=== PATIENT | female | born 1945 | race African-American/Black ===

== ENCOUNTER 2017-07-26 17:44 | Inpatient (IN) | payer MEDICARE, OTHER ==
--- NOTE | 2017-07-26 18:41 | RAD ---
RIGHT TIBIA AND FIBULA TWO VIEW 07/26/17 HISTORY: Injury. COMPARISON: None. FINDINGS: There is soft tissue phleboliths. No acute fracture or malalignment of the tib/fib. IMPRESSION: Chronic soft tissue changes. POS: [facility]
--- NOTE | 2017-07-26 18:45 | RAD ---
RIGHT FOOT THREE VIEW 07/26/17 HISTORY: Injury. COMPARISON: Foot radiograph 03/13/17. FINDINGS: There is erosion of the tuft of the distal phalanx of the second toe which appears relatively similar . Severe degenerative disease throughout the midfoot. Evidence of old fractures of the third and four th proximal phalanges. Severe degenerative disease of the midfoot with cystic change of the third, fourth and fifth metatars al base as well as the lateral cuneiform and in the navicular. IMPRESSION: 1. Chronic changes without acute fracture. 2. Erosion of the distal phalanx of the second toe suggests osteomyelitis. Correlation is recomm ended for evaluation of acuity. POS: [facility]
[2017-07-26] MEDS ORDERED: Acetaminophen 325 MG TAB ONE (19:37)
[2017-07-26 20:43] LABS: #Eosinphils 0.1 thou/uL (0.0-0.7); #Lymphocytes 2.1 thou/uL (1.20-3.40); #Neutrophils 7.6 thou/uL (1.40-6.50); %Basophils 0.1 % (0.0-1.0); %Lymphocytes 19.3 % (21.0-51.0); %Monocytes 9.2 % (0.0-10.0); Hematocrit 31.9 % (36.0-47.0); Mean Platelet Volume 9.3 fL (7.4-10.4); Red Blood Cell (RBC) Count 4.02 mill/uL (4.20-5.40); White Blood Cell (WBC) Count 10.7 thou/uL (4.8-10.8)
[2017-07-26] MEDS ORDERED: Piperacillin/Tazobactam 3.375 GM in Sodium Chloride 0.9% 100 ML IVPB ONE (20:45)
[2017-07-26 21:02] LABS: Anion Gap 14 mmol/L (10-20); BUN (Urea Nitrogen) 20 mg/dL (9.8-20.1); Calc. Creatinine Clearance 0 mL/min (70-130); Calcium 9.6 mg/dL (7.8-10.44); Carbon Dioxide 25 mmol/L (23-31); Chloride 105 mmol/L (98-107); Estimated GFR-MDRD 49
--- NOTE | 2017-07-26 22:41 | CT ---
CT OF THE BRAIN WITHOUT CONTRAST 07/26/17 HISTORY: Fall on anticoagulants. COMPARISON: CT brain 02/13/15. FINDINGS: No acute territorial infarct or hemorrhage. No midline shift or mass effect. Ventricular size and ext ra-axial CSF spaces are within normal limits. Small radial opacity along the periorbital soft tissues on the right, similar. The paranasal sinuses and mastoids are clear. Calvarium is intact. IMPRESSION: No acute intracranial abnormality. POS: [facility]
[2017-07-26] MEDS ORDERED: Ondansetron ODT 4 MG TAB SL PRN (23:07)
[2017-07-26] MEDS ORDERED: Ondansetron HCl/PF 4 MG/2 ML Vial IVP PRN (23:07)
[2017-07-26 23:22] VITALS: BMI 31.8
[2017-07-26] MEDS: Sodium Chloride 0.9% 1,000 ML IV SCH (23:31)
[2017-07-27] MEDS: Sodium Chloride 0.9% 1,000 ML IV SCH ×4 (05:50→17:08)
[2017-07-27 09:49] LABS: Prothrombin Time 40.2 SEC (12.0-14.7)
[2017-07-27 09:50] LABS: PTT 89.1 SEC (22.9-36.1)
[2017-07-27] MEDS ORDERED: hydrALAZINE 25 MG TAB PO SCH (10:00)
[2017-07-27] MEDS ORDERED: Digoxin 0.125 MG TAB PO SCH (10:00)
[2017-07-27] MEDS ORDERED: Lisinopril 20 MG TAB PO SCH (10:00)
[2017-07-27] MEDS ORDERED: Aspirin 81 mg Enteric Coated Tablet PO SCH (10:00)
[2017-07-27] MEDS ORDERED: metFORMIN XR 500 MG TAB PO SCH (10:00)
[2017-07-27] MEDS ORDERED: Sotalol HCl 80 MG TAB PO SCH (10:00)
[2017-07-27] MEDS ORDERED: Insulin Detemir 100 UNITS/ML 35 UNITS in Pre-Filled Syringe 1 EACH SC SCH (10:45)
[2017-07-27] MEDS: Piperacillin/Tazobactam 3.375 GM in Sodium Chloride 0.9% 100 ML IVPB SCH ×3 (11:27→21:14)
[2017-07-27 15:15] LABS: Bilirubin Negative (Negative); Glucose, Urine (Dipstick) Negative (Negative); Ketone, Urine Negative (Negative); Nitrite Negative (Negative); Protein, Urine (Dipstick) 30 mg/dL (Neg-Trace)
[2017-07-27] MEDS ORDERED: Ketorolac Tromethamine 30 MG/ML VIAL IVP SCH (15:15)
[2017-07-27] MEDS ORDERED: predniSONE 20 MG TAB PO SCH (15:15)
[2017-07-27 15:17] LABS: Bacteria/HPF None Seen HPF (None Seen); Hyaline Casts/LPF 0-3 HYALINE CAST LPF (0-3 Hyaline); Squamous Epithelial 0-3 HPF (0-3); WBC/HPF 0-3 HPF (0-3)
[2017-07-27 15:25] LABS: Blood, Urine Small (Negative)
--- NOTE | 2017-07-27 15:46 | RAD ---
CHEST 2 VIEWS: Date: 07/27/17 HISTORY: Chest pain. FINDINGS: Comparison with 03/13/07 study. Heart size is enlarged with internal defibrillator device present. The lungs are clear of infiltrativ e process. IMPRESSION: Mild cardiomegaly. POS: [facility]
--- NOTE | 2017-07-27 15:55 | CON ---
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 HISTORY: Ms. Araujo is a 71-year-old woman who has had pain and swelling in her right leg and foot since being tripped by her dog. She states that she owns a bulldog and it ran around her legs with its chain and then swept her feet out from underneath her. She states that her foot and leg had hurt since that time and been swollen and tender. She denies any fevers or chills at home, but states th at she did have a low grade fever in the emergency room. She denies any breaks in the skin or any dr ainage. She states that her right toe has been black in color, since her last admission when they we re putting a black medication on the toe. She denies any pain or swelling in her toes, but states th at the top of her foot hurts as well as her lateral calf. She did undergo imaging in the ER, A brain CT was negative for intracranial hemorrhage, foot x-ray did not show any acute fractures, but did sh ow irregularity of the distal tuft of the right second toe. A tibia/fibula x-ray did not show any fra ctures. The patient has chronic atrial fibrillation and is on anticoagulation for this. Her INR on admission was 3.9. PAST MEDICAL HISTORY: Hypertension, hyperlipidemia, gout, diabetes, chronic atrial fibrillation on a nticoagulation, COPD, coronary artery disease. PAST SURGICAL HISTORY: Ablation and AICD placement, knee replacement on the right. OUTPATIENT MEDICATIONS: Include aspirin, vitamin D, digoxin, diltiazem, hydralazine, glargine insuli n, lisinopril, metformin, metoprolol, simvastatin, sotalol and Coumadin. ALLERGIES: She has no known drug allergies. INPATIENT MEDICATIONS: Include aspirin, atorvastatin, vitamin D3, digoxin, diltiazem p.r.n., hydrala zine, sliding scale insulin, lisinopril, metformin, metoprolol, Zosyn and sotalol. REVIEW OF SYSTEMS: Ten-system review of systems is negative except per HPI. PHYSICAL EXAMINATION: VITAL SIGNS: T-max 100.5, T current 100.0, respirations 16, 97% saturated on room air, heart rate is 88, and blood pressure 166/72. HEENT: Unremarkable. NECK: Supple, without lymphadenopathy or thyroid nodules. HEART: Regular in its rate and rhythm without murmurs, rubs or gallops. LUNGS: Clear to auscultation bilaterally. ABDOMEN: Soft, nontender, nondistended. EXTREMITIES: Warm and well perfused. She has normal dorsalis pedis pulses bilaterally. Her right f oot is slightly swollen especially on the dorsum, it is tender to palpation, but there is no crepitan ce and no fluctuance. The right second toe has a black hyperkeratotic tip consistent with dry gangre ne, but the toe itself is not swollen or tender. There is no drainage or erythema. There is no temp erature differential between the right and the left foot by palpation. She does not have widened pop liteal or aortic pulse that I can appreciate on exam. NEUROLOGIC: No focal deficits. PSYCHIATRIC: Alert, oriented, and appropriate. 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 There i s no evidence of wet gangrene or infectious complications, so I have recommended just painting this w ith Betadine once or twice a day and observing it and allowing it to auto-amputate. It is not entirel y clear why she has necrotic toe tip. She may have thrown a small embolism from her atrial fibrillat ion or she may have debris in the arteries upstream. I do think it is worthwhile to check an ultraso und of her popliteal, femoral and aortic vessels as this has not already been done to look for aneury sms and I doubt that she has any significant stenosis and she has easily palpable pulses in her feet. Vascular surgery consultation on a non-urgent basis could also be considered given her dry gangrene ; however, I feel it is likely microvascular or small embolism given her normal pulses. I have recom mended that the patient elevate her leg and place some ice on the swollen areas. There is no milton e rythema or fluctuance, but if she continues to have low grade fevers, I would recommend that a CT be obtained of her foot and calf to rule out occult abscess. However, I feel that the musculoskeletal i njury is more likely in this situation; hence, evaluation for another source of infection might be pr udent. It does not appear that a urinalysis or urine culture was done on her admission, so that can be considered as a possibility as well. Dry gangrene of the right second toe which does not require surgical intervention at this time. She does have pain and swelling of her right foot as well as ten derness of her right calf without obvious clinical swelling. This is likely musculoskeletal, but inf ectious cause cannot be completely eliminated.
[2017-07-27] MEDS: metFORMIN XR 500 MG TAB PO SCH (17:07)
[2017-07-27] MEDS: Sotalol HCl 80 MG TAB PO SCH (20:01)
[2017-07-27] MEDS: hydrALAZINE 25 MG TAB PO SCH (20:02)
[2017-07-27] MEDS: Atorvastatin Calcium 10 MG TAB PO SCH (20:03)
[2017-07-27] MEDS ORDERED: Ketorolac Tromethamine 30 MG/ML VIAL IVP PRN (21:00)
--- NOTE | 2017-07-27 23:32 | HP ---
DATE OF ADMISSION: 07/26/2017 REASON/CHIEF COMPLAINT: Left ankle and left foot pain. HISTORY OF PRESENT ILLNESS: Ms. Araujo is a 71-year-old -Tog[place] female with past medical history of chronic atrial fibrillation, diabetes, hypertension, chronic second toe wound, who came be cause of left foot swelling and pain in the ankle that got worse in the last few days. The patient s tates she also fell yesterday. The patient's pain was getting worse. She decided to come to the [facility] and seemed to have fever at home. No nausea or vomiting, no headache, no chest pain, no shortn ess of breath. In the ER, the patient was evaluated. The patient was found to have left second toe dry gangrene, suspected to have osteomyelitis according to the x-ray, so, she was given Zosyn and van comycin and admitted for further evaluation and management. PAST MEDICAL HISTORY: 1. Diabetes mellitus. 2. Hypertension. 3. Hyperlipidemia. 4. Chronic obstructive pulmonary disease. 5. Chronic kidney failure. 6. Atrial fibrillation. 7. Coronary artery disease. 8. History of chronic gout. PAST SURGICAL HISTORY: Status post ablation of atrial flutter, status post AICD placement. CURRENT MEDICATIONS: The patient is on atorvastatin 10 mg daily, vitamin D daily, digoxin 0.125 mg d aily, diltiazem 240 daily, hydralazine 25 b.i.d., Levemir insulin 35 units daily, lisinopril 40 mg da butch, metformin 500 b.i.d., metoprolol 100 b.i.d., sotalol 80 mg daily. ALLERGIES: No known drug allergies. FAMILY HISTORY: Nothing of interest. SOCIAL HISTORY: The patient lives with family. No history of smoking. No history of alcohol intake . REVIEW OF SYSTEMS: Cardiovascular: No chest pain. No shortness of breath. Respiratory: No fever or cough. Gastrointestinal: No nausea, vomiting, or abdominal pain. Genitourinary: No dysuria or hematuria. Central Nervous System: No headache, no dizziness. PHYSICAL EXAMINATION: GENERAL: The patient is alert, awake, oriented x3. VITAL SIGNS: Temperature 100, pulse 85, respirations 20, blood pressure 160/70. HEENT: Head is normocephalic, atraumatic. Pupils equal and reactive to light. Nasopharynx is pale and dry. Hard and soft palate, no lesions seen. SKIN: Skin turgor decreased. NECK: Supple. No JVD. LUNGS: Bilateral air entry present, no rales, no rhonchi. CARDIAC: S1, S2 regular. ABDOMEN: Soft, no distention, no tenderness. Normal bowel sounds. RECTAL: Deferred. CENTRAL NERVOUS SYSTEM: No focal deficits. EXTREMITIES: Left ankle and foot mildly swollen, warm to touch, tender, range of movements decreased . Left second toe looks dark in pigmentation with evidence of dry gangrene. LABORATORY DATA: CBC shows WBC 10, hemoglobin 10.9, hematocrit 31, platelets 286. Metabolic panel: Sodium 140, potassium 4.2, chloride 105, CO2 25, urea nitrogen 20, creatinine 1.8, glucose 106. C-r eactive protein 13. Prothrombin time 40, INR 3.9. Left foot x-ray shows possible osteomyelitis seco nd toe of the distal phalanx. Chest x-ray not done. ASSESSMENT: 1. Left ankle and foot pain and swelling. 2. Dry gangrene, second toe, left foot. 3. Hypertension. 4. Possible acute gout. 5. Chronic obstructive pulmonary disease. 6. Chronic atrial fibrillation. 7. Hyperlipidemia. 8. Coronary artery disease. PLAN: 1. Vital signs q. 4 hours. 2. Activity: As tolerated. 3. Allergies: NKDA. 4. IV fluids normal saline 70 mL per hour. 5. Zosyn 3.375 grams q. 6 hours. 6. Toradol 30 IVP q. 6 hours. 7. Accu-Chek a.c. and at bedtime. 8. Sliding scale mild with regular insulin. 9. Continue home medication. 10. Surgery consult.
[2017-07-28] MEDS: Piperacillin/Tazobactam 3.375 GM in Sodium Chloride 0.9% 100 ML IVPB SCH ×4 (01:12→21:07)
[2017-07-28] MEDS: Sodium Chloride 0.9% 1,000 ML IV SCH ×2 (01:13→13:39)
[2017-07-28 04:39] LABS: #Lymphocytes 0.9 thou/uL (1.20-3.40); #Monocytes 0.3 thou/uL (0.11-0.59); #Neutrophils 7.1 thou/uL (1.40-6.50); %Basophils 0.3 % (0.0-1.0); %Eosinophils 0.1 % (0.0-10.0); %Lymphocytes 11.2 % (21.0-51.0); %Monocytes 4.1 % (0.0-10.0); Hematocrit 28.7 % (36.0-47.0); Mean Platelet Volume 9.6 fL (7.4-10.4); Red Blood Cell (RBC) Count 3.61 mill/uL (4.20-5.40); White Blood Cell (WBC) Count 8.4 thou/uL (4.8-10.8)
[2017-07-28 04:47] LABS: Anion Gap 14 mmol/L (10-20); BUN (Urea Nitrogen) 17 mg/dL (9.8-20.1); Calc. Creatinine Clearance 58 mL/min (70-130); Calcium 8.7 mg/dL (7.8-10.44); Carbon Dioxide 22 mmol/L (23-31); Chloride 107 mmol/L (98-107); Estimated GFR-MDRD 58
[2017-07-28 05:42] LABS: Prothrombin Time 32.2 SEC (12.0-14.7)
[2017-07-28 05:43] LABS: PTT 78.4 SEC (22.9-36.1)
[2017-07-28] MEDS: metFORMIN XR 500 MG TAB PO SCH ×2 (08:45→17:10)
[2017-07-28] MEDS: predniSONE 20 MG TAB PO SCH (08:45)
[2017-07-28] MEDS: Digoxin 0.125 MG TAB PO SCH (08:46)
[2017-07-28] MEDS: Aspirin 81 mg Enteric Coated Tablet PO SCH (08:46)
[2017-07-28] MEDS: Lisinopril 20 MG TAB PO SCH (08:46)
[2017-07-28] MEDS: hydrALAZINE 25 MG TAB PO SCH ×2 (08:46→21:06)
[2017-07-28] MEDS ORDERED: FLU VACC TS2017-18 (>65YR) 0.5 ML SYRINGE IM ONE (09:00)
[2017-07-28] MEDS: Insulin Detemir 100 UNITS/ML 35 UNITS in Pre-Filled Syringe 1 EACH SC SCH (09:14)
[2017-07-28] MEDS ORDERED: Sotalol HCl 80 MG TAB PO SCH (21:00)
[2017-07-28] MEDS: Atorvastatin Calcium 10 MG TAB PO SCH (21:06)
[2017-07-28] MEDS: Sotalol HCl 80 MG TAB PO SCH (21:07)
[2017-07-29] MEDS: Piperacillin/Tazobactam 3.375 GM in Sodium Chloride 0.9% 100 ML IVPB SCH ×3 (04:30→16:51)
[2017-07-29] MEDS: Sodium Chloride 0.9% 1,000 ML IV SCH ×2 (06:04→20:42)
[2017-07-29] MEDS: Digoxin 0.125 MG TAB PO SCH (09:03)
[2017-07-29] MEDS: predniSONE 20 MG TAB PO SCH (09:05)
[2017-07-29] MEDS: Aspirin 81 mg Enteric Coated Tablet PO SCH (09:05)
[2017-07-29] MEDS: hydrALAZINE 25 MG TAB PO SCH ×2 (09:05→20:44)
[2017-07-29] MEDS: Lisinopril 20 MG TAB PO SCH (09:05)
[2017-07-29] MEDS: metFORMIN XR 500 MG TAB PO SCH ×2 (09:05→16:51)
[2017-07-29] MEDS: Insulin Detemir 100 UNITS/ML 35 UNITS in Pre-Filled Syringe 1 EACH SC SCH (09:06)
--- NOTE | 2017-07-29 11:31 | PQF ---
CLINICAL DOCUMENTATION IMPROVEMENT CLARIFICATION FORM: ICD-10 Updated PLEASE DO AN ADDENDUM TO THE PROGRESS NOTE WITH ANY DOCUMENTATION UPDATES OR ADDITIONS AND CARRY THROUGH TO DC SUMMARY. THANK YOU. DATE: 07/29 ATTN: DR. Marilyn CHRISTINE Please exercise your independent, professional judgment in responding to the clarification form. Clinical indicators are provided on the bottom of this form for your review Please check appropriate box(s): Conflicting documentation was noted in the Medical Record, please clarify if patient is being treated/monitored for: [ ] DRY GANGRENE, R SECOND TOE (diagnosis #1) y[ ] DRY GANGRENE, L SECOND TOE (diagnosis #2) [ ] Other diagnosis [ ] Unable to determine For continuity of documentation, please document condition throughout progress notes and discharge summary. Thank You. CLINICAL INDICATORS - SIGNS / SYMPTOMS/ LABS ER PHYSICIAN DOCUMENTATION 07/26: RIGHT 2ND TOE OSTEOMYELITIS PHYSICIAN H&P DOCUMENTATION 07/27: ASSESSMENT: 2. DRY GANGRENE, SECOND TOE, LEFT FOOT GENERAL SURGERY CONSULT DOCUMENTATION 07/27: ASSESSMENT: DRY GANGRENE OF THE RIGHT SECOND TOE RIGHT FOOT XRAY 07/26: EROSION OF DISTAL PHALANX OF THE SECOND TOE SUGGESTS OSTEOMYELITIS RISK FACTORS: CHRONIC DRY GANGRENE R SECOND TOE DM II HTN TREATMENT: GENERAL SURGERY CONSULT PAINT TOE WITH BETADINE IV ANTIBIOTIC (ZOSYN 07/26 - PRESENT) THANK YOU! Radha (This form is maintained as a part of the permanent medical record) 2014 [employer]. All Rights Reserved Radha Esteves RN, BSN [email or web address] Office: [phone] [facility]
[2017-07-29] MEDS: Warfarin Sodium 5 MG TAB PO SCH (16:51)
[2017-07-29] MEDS: Sotalol HCl 80 MG TAB PO SCH (20:43)
[2017-07-29] MEDS: Atorvastatin Calcium 10 MG TAB PO SCH (20:43)
[2017-07-30 05:23] LABS: Hematocrit 27.8 % (36.0-47.0)
[2017-07-30 05:31] LABS: PTT 47.7 SEC (22.9-36.1); Prothrombin Time 19.9 SEC (12.0-14.7)
[2017-07-30] MEDS: predniSONE 20 MG TAB PO SCH (08:51)
[2017-07-30] MEDS: Lisinopril 20 MG TAB PO SCH (08:51)
[2017-07-30] MEDS: Digoxin 0.125 MG TAB PO SCH (08:51)
[2017-07-30] MEDS: metFORMIN XR 500 MG TAB PO SCH ×2 (08:51→17:10)
[2017-07-30] MEDS: Insulin Detemir 100 UNITS/ML 35 UNITS in Pre-Filled Syringe 1 EACH SC SCH (08:52)
[2017-07-30] MEDS: hydrALAZINE 25 MG TAB PO SCH ×2 (08:52→20:25)
[2017-07-30] MEDS: Aspirin 81 mg Enteric Coated Tablet PO SCH (08:52)
[2017-07-30] MEDS: Sodium Chloride 0.9% 1,000 ML IV SCH (09:03)
[2017-07-30] MEDS ORDERED: hydrALAZINE 25 MG TAB PO SCH (14:00)
[2017-07-30] MEDS: Warfarin Sodium 5 MG TAB PO SCH (17:11)
[2017-07-30] MEDS: Atorvastatin Calcium 10 MG TAB PO SCH (20:25)
[2017-07-30] MEDS: Sotalol HCl 80 MG TAB PO SCH (20:26)
[2017-07-30] MEDS ORDERED: Dextrose 50% Abboject 50 ML SYRINGE IVP PRN (21:19)
[2017-07-30] MEDS ORDERED: Dextrose 5% in Water 1,000 ML IV PRN (21:19)
[2017-07-30] MEDS: HumaLOG 300 UNITS/3 ML VIAL SC PRN (21:45)
[2017-07-31 04:57] LABS: PTT 40.3 SEC (22.9-36.1); Prothrombin Time 19.1 SEC (12.0-14.7)
[2017-07-31] MEDS: HumaLOG 300 UNITS/3 ML VIAL SC PRN ×2 (05:47→16:31)
[2017-07-31] MEDS ORDERED: predniSONE 20 MG TAB PO SCH (08:00)
[2017-07-31] MEDS: Digoxin 0.125 MG TAB PO SCH (08:44)
[2017-07-31] MEDS: Aspirin 81 mg Enteric Coated Tablet PO SCH (08:45)
[2017-07-31] MEDS: metFORMIN XR 500 MG TAB PO SCH ×2 (08:45→17:50)
[2017-07-31] MEDS: hydrALAZINE 25 MG TAB PO SCH (08:46)
[2017-07-31] MEDS: Lisinopril 20 MG TAB PO SCH (08:46)
[2017-07-31] MEDS: Insulin Detemir 100 UNITS/ML 35 UNITS in Pre-Filled Syringe 1 EACH SC SCH (08:47)
[2017-07-31 16:04] VITALS: BP 151/73; TEMP 96.3
[2017-07-31] MEDS: Warfarin Sodium 5 MG TAB PO SCH (17:50)
== END 2017-07-31 18:29 | disposition home or self-care (01) | DRG 300 ==
LOC: ERS 17:44 → T4-B 21:15
PROVIDERS: ADMIT Internal Medicine; ATTEND Internal Medicine
DX: E11.52 Type 2 diabetes mellitus with diabetic peripheral angiopathy with gangrene (principal); I96 Gangrene, not elsewhere classified; I48.2 Chronic atrial fibrillation; J44.9 Chronic obstructive pulmonary disease, unspecified; M10.071 Idiopathic gout, right ankle and foot; I10 Essential (primary) hypertension; Z95.810 Presence of automatic (implantable) cardiac defibrillator; Z79.4 Long term (current) use of insulin; Z79.84 Long term (current) use of oral hypoglycemic drugs; I25.10 Atherosclerotic heart disease of native coronary artery without angina pectoris; E78.5 Hyperlipidemia, unspecified
CPT/HCPCS: 36415; 36416; 70450; 71020; 80048; 81001; 85014; 85018; 85025; 85049; 85610; 85652; 85730; 86140; 87040; 96365; 96366; 96375; A4216; J1815; J1885; J2543; J3370; J7050; J7506

== ENCOUNTER 2018-05-10 09:24 | Emergency (ER) | payer MEDICARE, OTHER, MEDICAID ==
[2018-05-10] MEDS ORDERED: Acetaminophen 325 MG TAB ONE (11:12)
[2018-05-10 11:32] LABS: #Eosinphils 0.3 thou/uL (0.0-0.7); #Lymphocytes 1.9 thou/uL (1.20-3.40); #Monocytes 0.7 thou/uL (0.11-0.59); #Neutrophils 6.5 thou/uL (1.40-6.50); %Basophils 0.4 % (0.0-1.0); %Eosinophils 3.1 % (0.0-10.0); %Lymphocytes 20.4 % (21.0-51.0); %Monocytes 7.6 % (0.0-10.0); %Neutrophils 68.4 % (42.0-75.0); Hemoglobin 12.4 g/dL (12.0-16.0); Mean Corpuscular HGB CONC 33.5 g/dL (32.0-36.0); Mean Corpuscular Hemoglobin 26.3 pg (27.0-31.0); Mean Corpuscular Volume 78.7 fL (78.0-98.0); Mean Platelet Volume 9.7 fL (7.4-10.4); Platelet Count 227 thou/uL (130-400); RBC Distribution Width 15.9 % (11.5-14.5); Red Blood Cell (RBC) Count 4.69 mill/uL (4.20-5.40); White Blood Cell (WBC) Count 9.5 thou/uL (4.8-10.8)
[2018-05-10 11:56] LABS: ALT (SGPT) 11 U/L (8-55); AST (SGOT) 17 U/L (5-34); Albumin 4.5 g/dL (3.4-4.8); Alkaline Phosphatase 106 U/L (40-150); Anion Gap 19 mmol/L (10-20); BUN (Urea Nitrogen) 31 mg/dL (9.8-20.1); Bilirubin, Total 0.4 mg/dL (0.2-1.2); Calc. Creatinine Clearance 0 mL/min (70-130); Calcium 9.7 mg/dL (7.8-10.44); Carbon Dioxide 16 mmol/L (23-31); Chloride 109 mmol/L (98-107); Estimated GFR-MDRD 43; Globulin 3.9 g/dL (2.4-3.5); Glucose 91 mg/dL (83-110); Potassium 5.4 mmol/L (3.5-5.1); Protein, Total 8.4 g/dL (6.0-8.3); Sodium 139 mmol/L (136-145); Uric Acid 4.9 mg/dL (2.6-6.0)
--- NOTE | 2018-05-10 12:04 | RAD ---
3 VIEWS RIGHT KNEE: Date: 05/10/18 INDICATION: Right knee pain. COMPARISON: None. FINDINGS: There is moderate osteoarthrosis of the right knee predominantly involving the lateral femorotibial a nd patellofemoral compartments. There is diffuse osteopenia. There is moderate joint capsular disten tion. IMPRESSION: 1. No acute osseous abnormality. 2. Moderate joint capsular distention. POS: [facility]
[2018-05-10] MEDS ORDERED: predniSONE 20 MG TAB ONE ×2 (13:35→13:49)
== END 2018-05-10 13:55 | disposition home or self-care (01) ==
LOC: ERS 09:24
DX: M17.11 Unilateral primary osteoarthritis, right knee (principal); M25.461 Effusion, right knee; I11.0 Hypertensive heart disease with heart failure; I50.9 Heart failure, unspecified; E11.9 Type 2 diabetes mellitus without complications; I48.91 Unspecified atrial fibrillation; M10.9 Gout, unspecified
CPT/HCPCS: 36415; 80053; 84550; 85025; J7506

== ENCOUNTER 2019-06-04 09:40 | Outpatient (CLI) | payer MEDICARE, OTHER ==
--- NOTE | 2019-06-04 10:53 | MMO ---
Bilateral MAMMO Bilat Diag DDI+CHARITO. CLINICAL HISTORY: Patient is 73 years old and is seen for diagnostic exam and palpable abnormality in the left breast. The patient has no family history of breast cancer. The patient has no personal history of cancer. VIEWS: The views performed were: bilateral craniocaudal with tomosynthesis; bilateral mediolateral oblique with tomosynthesis; and bilateral mediolateral with tomosynthesis. FILMS COMPARED: The present examination has been compared to a prior imaging study performed at [facility] on 06/04/2019. This study has been interpreted with the assistance of computer-aided detection. MAMMOGRAM FINDINGS: There are scattered fibroglandular densities. Finding 1: There is a high density, round mass measuring 30 millimeters with indistinct margins and associated fine pleomorphic calcifications seen in the lower-outer region of the left breast. This corresponds to the palpable finding. A hypoechoic shadowing mass is seen in this region sonographically. Finding 2: There is an equal density, oval mass measuring 11 millimeters with circumscribed margins seen in the left breast at 2 o'clock. A circumscribed hypoechoic mass is seen in this region sonographically. Finding 3: There are benign appearing calcifications seen in both breasts. IMPRESSION: FINDING 1: MASS IN THE LOWER-OUTER REGION OF THE LEFT BREAST IS HIGHLY SUGGESTIVE OF MALIGNANCY. BIOPSY IS RECOMMENDED. RESULTS AND RECOMMENDATIONS DISCUSSED WITH THE PATIENT AND QUESTIONS ANSWERED. FINDING 2: MASS IN THE LEFT BREAST AT 2 O'CLOCK IS SUSPICIOUS. BIOPSY IS RECOMMENDED. THE RESULTS OF THIS EXAM WERE SENT TO THE PATIENT. ACR BI-RADS Category 5 - Highly suggestive of malignancy - appropriate action should be taken MAMMOGRAPHY NOTE: 1. A negative mammogram report should not delay a biopsy if a dominant of clinically suspicious mass is present. 2. Approximately 10% to 15% of breast cancers are not detected by mammography. 3. Adenosis and dense breasts may obscure an underlying neoplasm. Reported by: CORNELIUS ORTIZ MD Electonically Signed: [id number]
--- NOTE | 2019-06-04 12:46 | ULT ---
LIMITED LEFT BREAST ULTRASOUND: DATE: 06/04/2019. PROVIDED CLINICAL HISTORY: Left breast palpable abnormality, left breast mass. FINDINGS: Limited sonographic interrogation of the left breast at the 4 o'clock position demonstrates a heterog eneously hypoechoic lobulated mass with posterior shadowing and numerous associated microcalcificatio ns measuring at least 3 cm in greatest dimension. This corresponds to the area of palpable concern. At the 2 o'clock position of the left breast is a circumscribed ovoid hypoechoic mass measuring about 1 cm corresponding to the mammographic finding. No posterior shadowing. A small cyst is also seen at the 1 o'clock position of the left breast. IMPRESSION: 1. BIRADS category 5 - highly suspicious for malignancy. A 3 cm mass in the region of palpable conc magdalena is highly suspicious for malignancy. Biopsy is recommended. Results and recommendations discuss ed with the patient who voiced understanding. 2. A 1 cm 2 o'clock left breast mass corresponds to the mammographic finding. In the absence of julio nned mastectomy, this should also be biopsied. POS: [facility]
== END 2019-06-04 09:41 | disposition home or self-care (01) ==
LOC: BICMAMMO 09:40
PROVIDERS: ATTEND Internal Medicine
DX: N63.23 Unspecified lump in the left breast, lower outer quadrant (principal)
CPT/HCPCS: 76642; 77066; G0279; 77063; 77067

== ENCOUNTER 2019-06-19 13:49 | Inpatient (IN) | payer MEDICARE, OTHER ==
[2019-06-19 14:32] LABS: #Eosinphils 0.1 thou/uL (0.0-0.7); #Lymphocytes 1.7 thou/uL (1.20-3.40); #Monocytes 0.7 thou/uL (0.11-0.59); #Neutrophils 4.8 thou/uL (1.40-6.50); %Basophils 0.1 % (0.0-1.0); %Eosinophils 1.6 % (0.0-10.0); %Monocytes 9.2 % (0.0-10.0); %Neutrophils 66.2 % (42.0-75.0); Hemoglobin 8.7 g/dL (12.0-16.0); Mean Corpuscular Hemoglobin 25.2 pg (27.0-31.0); Mean Corpuscular Volume 81.3 fL (78.0-98.0); Mean Platelet Volume 9.5 fL (7.4-10.4); Platelet Count 213 thou/uL (130-400); RBC Distribution Width 17.6 % (11.5-14.5); Red Blood Cell (RBC) Count 3.44 mill/uL (4.20-5.40); White Blood Cell (WBC) Count 7.2 thou/uL (4.8-10.8)
[2019-06-19 14:53] LABS: ALT (SGPT) 11 U/L (8-55); AST (SGOT) 15 U/L (5-34); Albumin 3.5 g/dL (3.4-4.8); Alkaline Phosphatase 91 U/L (40-110); Anion Gap 12 mmol/L (10-20); BUN (Urea Nitrogen) 36 mg/dL (9.8-20.1); Bilirubin, Total 0.3 mg/dL (0.2-1.2); Calc. Creatinine Clearance 0 mL/min (70-130); Calcium 8.7 mg/dL (7.8-10.44); Carbon Dioxide 25 mmol/L (23-31); Chloride 104 mmol/L (98-107); Estimated GFR-MDRD 31; Globulin 2.3 g/dL (2.4-3.5); Glucose 79 mg/dL (83-110); Potassium 4.4 mmol/L (3.5-5.1); Protein, Total 5.8 g/dL (6.0-8.3); Sodium 137 mmol/L (136-145)
--- NOTE | 2019-06-19 14:56 | RAD ---
RADIOGRAPH CHEST 1 VIEW: DATE: 06/19/2019 TIME: 2:29 PM HISTORY: 73-year-old female with dyspnea COMPARISON: 07/27/2017 FINDINGS: Again noted is the multilead left subclavian transvenous AICD. There is a new finding of dense opacif ication of the base of the left lower lobe. In the rest of the visualized lung dickerson, there is no consolidation or pulmonary edema. No pulmonary venous engorgement. No pneumothorax. IMPRESSION: 1) dense opacity at base of left lower lobe. Possibilities include left pleural effusion and or left lower lobe atelectasis versus pneumonia or aspiration. 2) automatic implantable cardioverter-defibrillator.
[2019-06-19 15:13] LABS: CKMB 2.1 ng/mL (0-6.6)
[2019-06-19] MEDS ORDERED: HYDROcodone/Acetaminophen 5/325 mg Tablet ONE (15:37)
[2019-06-19 16:44] VITALS: BMI 30.2
[2019-06-19] MEDS ORDERED: Dextrose 5% in Water 1,000 ML IV PRN (18:05)
[2019-06-19] MEDS ORDERED: Dextrose 50% Abboject 50 ML SYRINGE IVP PRN (18:05)
[2019-06-19] MEDS: Sodium Chloride 0.45% 1,000 ML IV SCH (20:20)
[2019-06-19] MEDS: Acetaminophen/Codeine 30-300mg Tablet PO PRN (20:49)
--- NOTE | 2019-06-19 22:36 | HP ---
CHIEF COMPLAINT: Weakness, shortness of breath, pain in left leg. HISTORY OF PRESENT ILLNESS: Ms. Araujo is a 73-year-old Afro-[place]ian female, who had came because of shortness of breath, weakness. The patient was recently in the [facility] for the similar problems, also was seen again [facility] ER for weakness. She was told she was dehydrated and released. The patient came again because of this weakness, pain in the left foot, and shortness of breath. She did not have any chest pain, nausea, or vomiting. No headache. No dizziness. No fever. In the ER, the patient was evaluated and found to be anemic, possibly she is symptomatic from anemia. Did not find any kind of CHF. So, the patient is being admitted for further evaluation and management to monitor her anemia and possible transfusion. PAST MEDICAL HISTORY: 1. Hypertension. 2. Diabetes mellitus. 3. Hyperlipidemia. 4. History of gout. 5. Chronic atrial fibrillation. 6. COPD. 7. History of coronary artery disease. 8. Weakness. PAST SURGICAL HISTORY: 1. Status post AICD placement. 2. Status post ablation for atrial flutter. CURRENT MEDICATIONS: The patient is on; 1. Tylenol with codeine q.i.d. p.r.n. 2. Allopurinol 100 mg daily. 3. Aspirin 325 mg daily. 4. Vitamin D once a week, 50,000 units. 5. Digoxin 125 mcg daily. 6. Diltiazem 60 mg daily. 7. Eliquis 2.5 mg b.i.d. 8. Lasix 20 mg daily. 9. Lantus insulin 33 units daily. 10. Lisinopril 40 mg daily. 11. Metoprolol 100 mg daily. 12. Simvastatin 20 mg daily. 13. Sotalol 80 mg daily. ALLERGIES: NKDA. FAMILY HISTORY: Nothing contributory. SOCIAL HISTORY: The patient lives with family. No history of smoking. No history of alcohol. REVIEW OF SYSTEMS: CARDIOVASCULAR: No chest pain. Has shortness of breath. RESPIRATORY: Has cough, nonproductive. No fever. GASTROINTESTINAL: No nausea, vomiting, or abdominal pain. CENTRAL NERVOUS SYSTEM: No headache. No dizziness. PHYSICAL EXAMINATION: GENERAL: The patient is alert, awake, oriented x2. VITAL SIGNS: Temperature 98, pulse 68, respirations 20, blood pressure 150/70. HEENT: Head is normocephalic and atraumatic. Pupils are equal and reactive. Nasopharynx is pale and dry. Hard and soft, no lesions. SKIN: Turgor decreased. NECK: Supple. No JVD. LUNGS: Breath sounds diminished bilaterally. Percussion dull bilaterally. No rales. No rhonchi. HEART: S1, S2 regular. ABDOMEN: Soft. No distention. No tenderness. Normal bowel sounds. RECTAL: Deferred. CENTRAL NERVOUS SYSTEM: Motor system, power 4/5 in all extremities. Deep tendon reflexes 2+ bilaterally. Plantars downgoing. Sensory intact. LABORATORY DATA: CBC shows WBC 7.5, hemoglobin 8.7, hematocrit 27, platelets 213. Prothrombin time 14, INR 1.0. Metabolic panel; sodium 137, potassium 4.4, chloride 104, CO2 of 25, urea nitrogen 36, creatinine 1.8, glucose 318. BNP was 107. IMAGING DATA: Chest x-ray showed possible atelectasis of left lower lobe. EKG showed electronic pacemaker rhythm. ASSESSMENT: 1. Symptomatic anemia. 2. Weakness. 3. Unstable gait. 4. Hypertension, uncontrolled. 5. Diabetes mellitus. 6. Coronary artery disease. 7. Atrial fibrillation, chronic. 8. Status post ablation for atrial flutter. 9. Status post AICD placement. 10. History of gout. PLAN: 1. Vital signs q.4 hours. 2. Activities as tolerated. 3. Allergies, NKDA. 4. Hep-Lock. 5. Continue her home medication, Accu-Chek before meals and at bedtime. 6. Sliding scale mild with regular insulin. 7. Continue diet, ADA. 8. Repeat CBC, basic metabolic panel in the morning. 9. If the hemoglobin drops, we will transfuse. We will start physical therapy as well. Job ID: [id number]
[2019-06-20] MEDS: HYDROcodone/Acetaminophen 10/325 mg Tablet PO PRN ×3 (06:10→21:17)
[2019-06-20 06:32] LABS: #Eosinphils 0.2 thou/uL (0.0-0.7); #Lymphocytes 1.4 thou/uL (1.20-3.40); #Monocytes 0.7 thou/uL (0.11-0.59); #Neutrophils 4.8 thou/uL (1.40-6.50); %Basophils 0.1 % (0.0-1.0); %Eosinophils 2.6 % (0.0-10.0); %Lymphocytes 19.3 % (21.0-51.0); %Monocytes 9.3 % (0.0-10.0); %Neutrophils 68.7 % (42.0-75.0); Hemoglobin 8.1 g/dL (12.0-16.0); Mean Corpuscular HGB CONC 31.1 g/dL (32.0-36.0); Mean Corpuscular Hemoglobin 25.1 pg (27.0-31.0); Mean Corpuscular Volume 80.7 fL (78.0-98.0); Mean Platelet Volume 9.1 fL (7.4-10.4); Platelet Count 220 thou/uL (130-400); RBC Distribution Width 17.3 % (11.5-14.5); Red Blood Cell (RBC) Count 3.22 mill/uL (4.20-5.40)
[2019-06-20 06:42] LABS: Anion Gap 10 mmol/L (10-20); BUN (Urea Nitrogen) 40 mg/dL (9.8-20.1); Calc. Creatinine Clearance 34 mL/min (70-130); Calcium 8.9 mg/dL (7.8-10.44); Carbon Dioxide 28 mmol/L (23-31); Chloride 105 mmol/L (98-107); Estimated GFR-MDRD 35; Glucose 66 mg/dL (83-110); Potassium 4.2 mmol/L (3.5-5.1); Sodium 139 mmol/L (136-145)
[2019-06-20] MEDS: metFORMIN XR 500 MG TAB PO SCH ×2 (08:28→16:09)
[2019-06-20] MEDS: Digoxin 0.125 MG TAB PO SCH (08:29)
[2019-06-20] MEDS: Allopurinol 100 MG TAB PO SCH (08:29)
[2019-06-20] MEDS: Ferrous Sulfate 325 MG TAB PO SCH ×3 (08:29→16:09)
[2019-06-20] MEDS: Lisinopril 20 MG TAB PO SCH (08:29)
[2019-06-20] MEDS: hydrALAZINE 25 MG TAB PO SCH ×2 (08:29→21:09)
[2019-06-20] MEDS: Aspirin 81 mg Enteric Coated Tablet PO SCH (08:29)
[2019-06-20] MEDS: Sodium Chloride 0.45% 1,000 ML IV SCH ×3 (08:30→21:17)
[2019-06-20] MEDS ORDERED: Prevnar 13-Val Conj/PF 0.5 ML SYRINGE IM ONE (09:00)
[2019-06-20] MEDS ORDERED: FLU VACC TS2019-20(65YR UP)/PF 180 MCG/0.5 ML SYRINGE IM ONE (09:00)
[2019-06-20] MEDS ORDERED: Insulin Glargine 35 UNITS in Pre-Filled Syringe 1 EACH SC SCH (09:00)
[2019-06-20] MEDS ORDERED: Furosemide 20 MG TAB PO SCH (09:00)
[2019-06-20] MEDS: Apixaban 2.5 MG TAB PO SCH ×2 (09:45→21:13)
[2019-06-20] MEDS ORDERED: guaiFENesin ER 600 MG TAB PO SCH (10:30)
[2019-06-20] MEDS: Acetaminophen/Codeine 30-300mg Tablet PO PRN (11:46)
[2019-06-20] MEDS ORDERED: predniSONE 20 MG TAB PO SCH (18:00)
[2019-06-20] MEDS ORDERED: Sotalol HCl 80 MG TAB PO SCH (21:00)
[2019-06-20] MEDS: Melatonin 3 MG TAB PO SCH (21:07)
[2019-06-20] MEDS: Sotalol HCl 80 MG TAB PO SCH (21:08)
[2019-06-20] MEDS: Atorvastatin Calcium 10 MG TAB PO SCH (21:10)
[2019-06-20] MEDS: guaiFENesin ER 600 MG TAB PO SCH (21:10)
[2019-06-21] MEDS: HYDROcodone/Acetaminophen 10/325 mg Tablet PO PRN ×3 (02:37→11:50)
[2019-06-21] MEDS: Insulin Regular 300 UNITS/3 ML VIAL SC PRN ×3 (05:33→17:26)
[2019-06-21 07:48] LABS: #Lymphocytes 0.8 thou/uL (1.20-3.40); #Monocytes 0.2 thou/uL (0.11-0.59); #Neutrophils 5.3 thou/uL (1.40-6.50); %Basophils 0.3 % (0.0-1.0); %Eosinophils 0.3 % (0.0-10.0); %Lymphocytes 12.9 % (21.0-51.0); %Monocytes 3.2 % (0.0-10.0); %Neutrophils 83.4 % (42.0-75.0); Hemoglobin 8.3 g/dL (12.0-16.0); Mean Corpuscular HGB CONC 31.3 g/dL (32.0-36.0); Mean Corpuscular Hemoglobin 25.4 pg (27.0-31.0); Mean Corpuscular Volume 81.2 fL (78.0-98.0); Mean Platelet Volume 9.3 fL (7.4-10.4); Platelet Count 245 thou/uL (130-400); RBC Distribution Width 17.3 % (11.5-14.5); Red Blood Cell (RBC) Count 3.28 mill/uL (4.20-5.40); White Blood Cell (WBC) Count 6.4 thou/uL (4.8-10.8)
[2019-06-21 08:08] LABS: Anion Gap 16 mmol/L (10-20); BUN (Urea Nitrogen) 45 mg/dL (9.8-20.1); Calc. Creatinine Clearance 31 mL/min (70-130); Calcium 8.8 mg/dL (7.8-10.44); Carbon Dioxide 21 mmol/L (23-31); Chloride 101 mmol/L (98-107); Estimated GFR-MDRD 31; Glucose 150 mg/dL (83-110); Sodium 133 mmol/L (136-145)
[2019-06-21] MEDS: Ferrous Sulfate 325 MG TAB PO SCH ×3 (09:33→17:25)
[2019-06-21] MEDS: Allopurinol 100 MG TAB PO SCH (09:33)
[2019-06-21] MEDS: Aspirin 81 mg Enteric Coated Tablet PO SCH (09:34)
[2019-06-21] MEDS: Digoxin 0.125 MG TAB PO SCH (09:34)
[2019-06-21] MEDS: hydrALAZINE 25 MG TAB PO SCH ×2 (09:38→20:45)
[2019-06-21] MEDS: Lisinopril 20 MG TAB PO SCH (09:41)
[2019-06-21] MEDS: guaiFENesin ER 600 MG TAB PO SCH ×2 (09:41→20:45)
[2019-06-21] MEDS: predniSONE 20 MG TAB PO SCH (09:41)
[2019-06-21] MEDS: Sodium Chloride 0.45% 1,000 ML IV SCH ×2 (14:00→20:46)
[2019-06-21] MEDS ORDERED: Ketorolac Tromethamine 30 MG/ML VIAL IVP SCH (14:00)
--- NOTE | 2019-06-21 17:30 | RAD ---
EXAM: Right knee 4 views: HISTORY: Pain COMPARISON: 06/02/2013 FINDINGS: Bony demineralization and tricompartment arthrosis. Degenerative changes. No acute fracture or dislocation or other significant acute osseous abnormality. IMPRESSION: No significant acute process.
--- NOTE | 2019-06-21 17:34 | RAD ---
Exam: Left knee 4 views: HISTORY: Left knee pain COMPARISON: 10/21/2016 FINDINGS: Bony demineralization. Total knee replacement. Minimal anterior suprapatellar soft tissue fullness. N o periprostatic fracture. No dislocation. IMPRESSION: Left total knee replacement. No acute fracture or dislocation.
[2019-06-21] MEDS: Sotalol HCl 80 MG TAB PO SCH (20:45)
[2019-06-21] MEDS: Atorvastatin Calcium 10 MG TAB PO SCH (20:45)
[2019-06-21] MEDS: Melatonin 3 MG TAB PO SCH (20:45)
[2019-06-21] MEDS: Ketorolac Tromethamine 30 MG/ML VIAL IVP PRN (23:59)
[2019-06-22] MEDS: Insulin Regular 300 UNITS/3 ML VIAL SC PRN ×4 (05:45→20:42)
[2019-06-22 06:26] LABS: #Lymphocytes 1.3 thou/uL (1.20-3.40); #Monocytes 0.8 thou/uL (0.11-0.59); #Neutrophils 6.7 thou/uL (1.40-6.50); %Eosinophils 0.2 % (0.0-10.0); %Lymphocytes 14.9 % (21.0-51.0); %Monocytes 8.7 % (0.0-10.0); %Neutrophils 76.1 % (42.0-75.0); Hemoglobin 8.6 g/dL (12.0-16.0); Mean Corpuscular HGB CONC 31.3 g/dL (32.0-36.0); Mean Corpuscular Hemoglobin 25.3 pg (27.0-31.0); Mean Corpuscular Volume 80.8 fL (78.0-98.0); Mean Platelet Volume 8.5 fL (7.4-10.4); Platelet Count 263 thou/uL (130-400); RBC Distribution Width 17.5 % (11.5-14.5); Red Blood Cell (RBC) Count 3.38 mill/uL (4.20-5.40); White Blood Cell (WBC) Count 8.8 thou/uL (4.8-10.8)
[2019-06-22 06:49] LABS: Anion Gap 12 mmol/L (10-20); BUN (Urea Nitrogen) 55 mg/dL (9.8-20.1); Calc. Creatinine Clearance 29 mL/min (70-130); Calcium 8.8 mg/dL (7.8-10.44); Carbon Dioxide 24 mmol/L (23-31); Chloride 101 mmol/L (98-107); Estimated GFR-MDRD 29; Glucose 162 mg/dL (83-110); Potassium 4.6 mmol/L (3.5-5.1); Sodium 132 mmol/L (136-145)
[2019-06-22] MEDS: Allopurinol 100 MG TAB PO SCH (08:33)
[2019-06-22] MEDS: Aspirin 81 mg Enteric Coated Tablet PO SCH (08:34)
[2019-06-22] MEDS: Digoxin 0.125 MG TAB PO SCH (08:34)
[2019-06-22] MEDS: Ferrous Sulfate 325 MG TAB PO SCH ×3 (08:34→17:30)
[2019-06-22] MEDS: predniSONE 20 MG TAB PO SCH (08:35)
[2019-06-22] MEDS: Lisinopril 20 MG TAB PO SCH (08:35)
[2019-06-22] MEDS: guaiFENesin ER 600 MG TAB PO SCH ×2 (08:35→20:38)
[2019-06-22] MEDS: Ketorolac Tromethamine 30 MG/ML VIAL IVP PRN (08:46)
[2019-06-22] MEDS: hydrALAZINE 25 MG TAB PO SCH ×2 (10:20→20:38)
[2019-06-22] MEDS: Sodium Chloride 0.45% 1,000 ML IV SCH ×2 (13:40→23:56)
--- NOTE | 2019-06-22 16:16 | PQF ---
CLINICAL DOCUMENTATION IMPROVEMENT CLARIFICATION FORM: ICD-10 Updated PLEASE DO AN ADDENDUM TO THE PROGRESS NOTE WITH ANY DOCUMENTATION UPDATES OR ADDITIONS AND CARRY THROUGH TO DC SUMMARY. THANK YOU. DATE: 06/22/2019 ATTN: Dr. Marshall Please exercise your independent, professional judgment in responding to the clarification form. Clinical indicators are provided on the bottom of this form for your review Please check appropriate box(s): [ ] Acute Renal Failure (ARF) / Acute Kidney Injury (MELANIE) [ y ] Acute on Chronic Renal Failure please specify Stage of CKD ____3___ (see below) [ ] CKD without ARF/MELANIE please specify Stage of CKD [ ] Other diagnosis [ ] Unable to determine In addition, please specify: Present on Admission (POA): [ y Yes [ ] No [ ] Unable to determine For continuity of documentation, please document condition throughout progress notes and discharge summary. Thank You. CLINICAL INDICATORS - SIGNS / SYMPTOMS/ LABS are present in the medical record: 06/19 06/20 06/22 LAB: Creatinine 1.89 1.73 2.03 Estimated GFR 31 35 29 RISKS: H&P 06/19: PMH HTN, DM. Current Medications: Lasix 20 mg daily Assessment: Symptomatic anemia. Weakness. TREATMENT: MAR: Order 06/19: 1/2 NS IV 80 mls/hr Lab Order for BMP - 06/19, 06/20, 06/21 Thank you, Evelina (This form is maintained as a part of the permanent medical record) 2014 [employer] All Rights Reserved Evelina Grier RN, BSN [email or web address] Office: [phone] [facility]
[2019-06-22] MEDS: Atorvastatin Calcium 10 MG TAB PO SCH (20:38)
[2019-06-22] MEDS: Sotalol HCl 80 MG TAB PO SCH (20:38)
[2019-06-22] MEDS: Melatonin 3 MG TAB PO SCH (20:38)
[2019-06-23] MEDS: HYDROcodone/Acetaminophen 10/325 mg Tablet PO PRN (01:35)
[2019-06-23 06:05] LABS: Hemoglobin 8.8 g/dL (12.0-16.0)
[2019-06-23 06:30] LABS: Anion Gap 15 mmol/L (10-20); BUN (Urea Nitrogen) 60 mg/dL (9.8-20.1); Calc. Creatinine Clearance 33 mL/min (70-130); Carbon Dioxide 20 mmol/L (23-31); Chloride 104 mmol/L (98-107); Estimated GFR-MDRD 33; Glucose 154 mg/dL (83-110); Potassium 4.9 mmol/L (3.5-5.1); Sodium 134 mmol/L (136-145)
[2019-06-23] MEDS: Aspirin 81 mg Enteric Coated Tablet PO SCH (08:20)
[2019-06-23] MEDS: Lisinopril 20 MG TAB PO SCH (08:20)
[2019-06-23] MEDS: Allopurinol 100 MG TAB PO SCH (08:20)
[2019-06-23] MEDS: Digoxin 0.125 MG TAB PO SCH (08:22)
[2019-06-23] MEDS: predniSONE 20 MG TAB PO SCH (08:22)
[2019-06-23] MEDS: hydrALAZINE 25 MG TAB PO SCH ×3 (08:23→20:21)
[2019-06-23] MEDS: guaiFENesin ER 600 MG TAB PO SCH ×2 (08:23→20:22)
[2019-06-23] MEDS: Ferrous Sulfate 325 MG TAB PO SCH ×3 (08:23→17:24)
--- NOTE | 2019-06-23 10:42 | ULT ---
Renal sonogram HISTORY: Chronic renal failure. FINDINGS: Right kidney measures up to 10.1 cm and the left kidney 9.6 cm. No hydronephrosis. There is a 1.2 cm cyst at the superior pole right kidney. No solid masses visualized. The inferior pole of the left kidney predominantly obscured by bowel gas. Urinary bladder has normal appearance. IMPRESSION: No evidence of urinary tract obstruction. Small right renal cyst.
--- NOTE | 2019-06-23 11:23 | CON ---
DATE OF CONSULTATION: HISTORY OF PRESENT ILLNESS: Ms. Araujo is a 73-year-old black female, who presented with a subjective complaint of shortness of breath. On further questioning, the patient has been having cough. In addition, she is having diffuse myalgia and joint pains. We are now being consulted for her acute kidney injury on top of her chronic renal failure. Of interest, this patient has been on lisinopril and in addition, she has been also on furosemide at home. This morning, the patient denies any chest pain or shortness of breath. We are seeing this patient for chronic renal failure/acute kidney injury. REVIEW OF SYSTEMS: No shortness of breath at the present time. Diffuse myalgia. Positive for joint pains. No nausea. No vomiting. No fever or chills. No gross hematuria. No dysuria. No urinary frequency. No hematochezia. No melena. No hematemesis. No headache. No diplopia. Appetite and energy level are fair. MEDICATIONS: Currently on; 1. Allopurinol 100 mg once a day. 2. Aspirin 81 mg daily. 3. Atorvastatin 10 mg tablet at bedtime. 4. Vitamin D3 of 1000 international units q.7 days. 5. Digoxin 0.125 mg q.a.m. 6. Diltiazem 20 mg once a day. 7. Ferrous sulfate 325 mg p.o. t.i.d. 8. Hydralazine 50 mg p.o. b.i.d. 9. Ketorolac - on hold. 10. Lisinopril 40 mg tablet once a day. 11. Metoprolol succinate 100 mg p.o. b.i.d. 12. Prednisone 40 mg q.a.m. 13. Sotalol 40 mg at bedtime. 14. Also on Levaquin 750 mg q.4. PAST MEDICAL HISTORY: 1. Hypertension. 2. Chronic renal failure secondary to a presumptive hypertensive nephropathy. 3. DJD. 4. Type 2 diabetes mellitus. 5. Hyperlipidemia. 6. Gout. 7. Chronic AFib. 8. COPD. 9. Coronary artery disease. PAST SURGICAL HISTORY: Status post AICD placement, status post cardiac cath, status post ablation for atrial fib/flutter, status post total knee replacement - left, and status post upper and lower GI endoscopy. SOCIAL HISTORY: The patient is single, lives in [place], but currently is living with a niece in [place]. Retired manager restaurant. Education, 11th grade. Used to smoke about 1 pack a day for about 12 years. Currently, not smoking. Alcohol, none. Sedentary lifestyle. ALLERGIES: NO KNOWN DRUG ALLERGIES. TRAUMA: None. IMMUNIZATIONS: Up-to-date. HOSPITALIZATIONS: Please see past medical history. FAMILY HISTORY: No family history of ESRD. PHYSICAL EXAMINATION: VITAL SIGNS: Blood pressure is noted at 162/73 with a heart rate of 60, respiratory rate is 22, O2 saturation 100%, and temperature 97.1. GENERAL: Noted to be awake, alert, with mild pain, diffuse joint pains. LUNGS: Clear breath sounds. No wheezing. No crackles. HEART: Normal sinus rhythm. No murmur. No gallops. No rubs. ABDOMEN: Globular, soft, and nontender. No masses. EXTREMITIES: No edema. No deformities. LABORATORY DATA: Laboratories of June 23, 2019; sodium 134, potassium 4.9, chloride 104, carbon dioxide 20, BUN 60, creatinine 1.79, calcium 9. Hemoglobin 8.8, hematocrit 27.5. Urinalysis of July 27, 2017, did show protein. ASSESSMENT AND PLAN: 1. Chronic renal failure/acute kidney injury - superimposed hemodynamically-mediated dysfunction. The patient was on diuretics and this has been discontinued. However, she is still on lisinopril. Renal function is improving. We will continue to observe. We will leave current dose of lisinopril as is. 2. Proteinuria - could be from a hypertensive or diabetic nephropathy. Continue supportive care. No indication for any dialytic intervention with this patient. Consider obtaining a renal ultrasound to determine kidney size. 3. Hypertension. Continue current BP medications. Consider increasing hydralazine to a t.i.d. dosing. Agree with current management. Repeat urinalysis. Job ID: [id number]
[2019-06-23 11:49] LABS: Bilirubin Negative (Negative); Blood, Urine Negative (Negative); Clarity Clear (Clear); Glucose, Urine (Dipstick) Normal (Negative); Leukocyte Negative Leu/uL (Negative); Nitrite Negative (Negative); Protein, Urine (Dipstick) Negative (Neg-Trace); RBC/HPF 0-3 HPF (0-3); Squamous Epithelial 0-3 HPF (0-3); Urobilinogen Normal mg/dL (Less than 2); WBC/HPF 0-3 HPF (0-3)
[2019-06-23 11:51] LABS: Bacteria/HPF Rare-Few HPF (None Seen)
[2019-06-23] MEDS: Insulin Regular 300 UNITS/3 ML VIAL SC PRN ×3 (12:16→20:22)
[2019-06-23] MEDS: Sotalol HCl 80 MG TAB PO SCH (20:21)
[2019-06-23] MEDS: Atorvastatin Calcium 10 MG TAB PO SCH (20:21)
[2019-06-23] MEDS: Melatonin 3 MG TAB PO SCH (20:21)
[2019-06-23] MEDS: Loratadine 10 MG TAB PO SCH (20:22)
[2019-06-24 05:51] LABS: #Lymphocytes 0.9 thou/uL (1.20-3.40); #Monocytes 0.4 thou/uL (0.11-0.59); #Neutrophils 6.9 thou/uL (1.40-6.50); %Basophils 0.1 % (0.0-1.0); %Eosinophils 0.2 % (0.0-10.0); %Lymphocytes 10.4 % (21.0-51.0); %Monocytes 5.3 % (0.0-10.0); %Neutrophils 83.9 % (42.0-75.0); Hemoglobin 8.9 g/dL (12.0-16.0); Mean Corpuscular Hemoglobin 25.8 pg (27.0-31.0); Mean Corpuscular Volume 80.5 fL (78.0-98.0); Mean Platelet Volume 8.8 fL (7.4-10.4); Platelet Count 263 thou/uL (130-400); RBC Distribution Width 17.7 % (11.5-14.5); Red Blood Cell (RBC) Count 3.45 mill/uL (4.20-5.40); White Blood Cell (WBC) Count 8.2 thou/uL (4.8-10.8)
[2019-06-24 06:11] LABS: Anion Gap 13 mmol/L (10-20); BUN (Urea Nitrogen) 57 mg/dL (9.8-20.1); Calc. Creatinine Clearance 36 mL/min (70-130); Carbon Dioxide 21 mmol/L (23-31); Chloride 105 mmol/L (98-107); Estimated GFR-MDRD 36; Glucose 141 mg/dL (83-110); Potassium 4.8 mmol/L (3.5-5.1); Sodium 134 mmol/L (136-145)
[2019-06-24] MEDS: Digoxin 0.125 MG TAB PO SCH (08:34)
[2019-06-24] MEDS: Aspirin 81 mg Enteric Coated Tablet PO SCH (08:35)
[2019-06-24] MEDS: predniSONE 20 MG TAB PO SCH (08:35)
[2019-06-24] MEDS: Allopurinol 100 MG TAB PO SCH (08:35)
[2019-06-24] MEDS: hydrALAZINE 25 MG TAB PO SCH ×3 (08:36→20:54)
[2019-06-24] MEDS: Ferrous Sulfate 325 MG TAB PO SCH ×3 (08:37→17:53)
[2019-06-24] MEDS: Lisinopril 20 MG TAB PO SCH (08:37)
[2019-06-24] MEDS: guaiFENesin ER 600 MG TAB PO SCH ×2 (08:37→20:53)
[2019-06-24] MEDS: Fluticasone Propionate Nasal Spray 16 gm Bottle NASAL SCH (08:38)
--- NOTE | 2019-06-24 09:58 | PRG ---
DATE OF SERVICE: 06/24/2019 SUBJECTIVE: Ms. Araujo is a 73-year-old black female, who was seen for an acute kidney injury. The Renal Service saw the patient. The feeling is that she may have an acute kidney injury on top of her chronic renal failure. The kidney injury may most likely be hemodynamically mediated renal dysfunction. She also came with some shortness of breath. This morning, she was noted to be quite confused. A CAT scan of the head has been ordered by her PCP. No other complaints. No chest pain or shortness of breath. OBJECTIVE: VITAL SIGNS: Blood pressure is 164/69, heart rate 61, respiratory rate 20, temperature 98.1 pulse ox 100%. GENERAL: The patient is awake, alert, comfortable, not in overt distress. SKIN: Adequate turgor. HEENT: She has a pinkish conjunctivae. Anicteric sclerae. NECK: No neck mass. No carotid bruits. No JVD. CHEST: No deformities. LUNGS: Clear breath sounds. HEART: Normal sinus rhythm. No murmur. No gallops. No rubs. ABDOMEN: Globular, soft, nontender. No masses. EXTREMITIES: No edema. No deformities. MEDICATIONS: Medications of June 24, 2019, were reviewed. LABORATORY DATA: Laboratories of June 24, 2019; white count 8.2, hemoglobin 8.9. Sodium 134, potassium 3.8, chloride 105, carbon dioxide 21, BUN 57, creatinine 1.67, glucose 141, calcium 9. ASSESSMENT AND PLAN: 1. Acute kidney injury on top of her chronic renal failure - a superimposed hemodynamically-mediated dysfunction. Continue current supportive care. Continue to hold off diuretics. Consider decreasing dose of the lisinopril from 40 to 20 mg tablet once a day. 2. Hypertension, fair control. Recently, hydralazine has been increased to 50 mg tablet t.i.d. 3. We will recheck basic metabolic panel, CBC in a.m. ADDENDUM: Confusion for CAT scan of the head. Job ID: [id number]
--- NOTE | 2019-06-24 10:03 | CT ---
CT BRAIN WITHOUT CONTRAST: Date: 06/24/19 HISTORY: Altered mental status, confusion, hallucinations. FINDINGS: Comparison made with exam of 07/26/17. No evidence of acute infarct, hemorrhage, midline shift, or abnormal extra-axial fluid collections ar e seen. The ventricular size is stable and the basilar cisterns are patent. The bony calvarium is int act. The visualized paranasal sinuses and mastoid air cells are well aerated. IMPRESSION: No CT evidence of acute intracranial process. POS: [facility]
[2019-06-24] MEDS: Atorvastatin Calcium 10 MG TAB PO SCH (20:53)
[2019-06-24] MEDS: Melatonin 3 MG TAB PO SCH (20:54)
[2019-06-24] MEDS: Loratadine 10 MG TAB PO SCH (20:54)
[2019-06-24] MEDS: Sotalol HCl 80 MG TAB PO SCH (20:55)
[2019-06-25] MEDS: Acetaminophen/Codeine 30-300mg Tablet PO PRN ×2 (04:50→21:08)
[2019-06-25 06:51] LABS: Anion Gap 13 mmol/L (10-20); BUN (Urea Nitrogen) 58 mg/dL (9.8-20.1); Calc. Creatinine Clearance 36 mL/min (70-130); Calcium 9.2 mg/dL (7.8-10.44); Carbon Dioxide 21 mmol/L (23-31); Chloride 108 mmol/L (98-107); Estimated GFR-MDRD 36; Glucose 121 mg/dL (83-110); Potassium 5.1 mmol/L (3.5-5.1); Sodium 137 mmol/L (136-145)
[2019-06-25 07:39] LABS: #Eosinphils 0.1 thou/uL (0.0-0.7); #Lymphocytes 1.1 thou/uL (1.20-3.40); #Monocytes 0.5 thou/uL (0.11-0.59); #Neutrophils 5.5 thou/uL (1.40-6.50); %Basophils 0.4 % (0.0-1.0); %Lymphocytes 15.5 % (21.0-51.0); %Monocytes 7.4 % (0.0-10.0); %Neutrophils 74.8 % (42.0-75.0); Hypochromia SLIGHT = 6-15 cells (100X) (0-5/hpf); MDiff Complete? YES; Mean Corpuscular HGB CONC 31.5 g/dL (32.0-36.0); Mean Corpuscular Hemoglobin 25.1 pg (27.0-31.0); Mean Corpuscular Volume 79.9 fL (78.0-98.0); Mean Platelet Volume 9.7 fL (7.4-10.4); Microcytosis SLIGHT = 6-15 cells (100X) (0-5/hpf); Ovalocytes SLIGHT = 2-5 cells (100X) (0-1/hpf); Platelet Count 234 thou/uL (130-400); Platelet Morphology Comment Appears Adequate; Polychromasia SLIGHT = 2-3 cells (100X) (0-2/hpf); RBC Distribution Width 17.7 % (11.5-14.5); Red Blood Cell (RBC) Count 3.58 mill/uL (4.20-5.40); White Blood Cell (WBC) Count 7.4 thou/uL (4.8-10.8)
[2019-06-25] MEDS: Allopurinol 100 MG TAB PO SCH (09:47)
[2019-06-25] MEDS: Aspirin 81 mg Enteric Coated Tablet PO SCH (09:48)
[2019-06-25] MEDS: guaiFENesin ER 600 MG TAB PO SCH ×2 (09:48→21:10)
[2019-06-25] MEDS: Digoxin 0.125 MG TAB PO SCH (09:48)
[2019-06-25] MEDS: hydrALAZINE 25 MG TAB PO SCH ×3 (09:48→21:09)
[2019-06-25] MEDS: Ferrous Sulfate 325 MG TAB PO SCH ×3 (09:48→17:18)
[2019-06-25] MEDS: Lisinopril 20 MG TAB PO SCH (09:48)
[2019-06-25] MEDS: Fluticasone Propionate Nasal Spray 16 gm Bottle NASAL SCH (09:49)
--- NOTE | 2019-06-25 10:20 | PRG ---
DATE OF SERVICE: 06/25/2019 SUBJECTIVE: Ms. Araujo is a 73-year-old black female followed up for acute kidney injury on top of her chronic renal failure. Initially, we felt that she may have a hemodynamically-mediated renal dysfunction. Furosemide has been placed on hold. The patient has been having confusion in the last few days. CAT scan of the head was done, which showed no acute intracranial abnormality. No other complaints. OBJECTIVE: VITAL SIGNS: Blood pressure 160/79, heart rate 62, respiratory rate 22, temperature 97.6, and pulse ox 100%. GENERAL: Noted to be awake and confused, but not in distress. SKIN: Adequate turgor. HEENT: Pinkish conjunctivae. Anicteric sclerae. NECK: No neck mass. No carotid bruits. No JVD. CHEST: No deformities. LUNGS: Clear breath sounds. No wheezing. No crackles. HEART: Normal sinus rhythm. No murmurs. No gallops. No rubs. ABDOMEN: Globular, soft, and nontender. No masses. EXTREMITIES: No edema. No deformities. MEDICATIONS: Medications of June 25, 2019, were reviewed. LABORATORY DATA: Laboratories of June 25, 2019; white count 7.4, hemoglobin 9, hematocrit 28.6. Sodium 137, potassium 5.1, chloride 108, carbon dioxide 21, BUN 58, creatinine 1.67, glucose 121, and calcium 9.2. ASSESSMENT AND PLAN: 1. Borderline anemia. Continue to observe, on iron supplementation. 2. Acute kidney injury/chronic renal failure, stable. Most recent creatinine is noted at 1.67. This is relatively unchanged from yesterday. 3. My bias is to decrease lisinopril from 40 to 20 mg tablet once a day to see if I could get further improvement with the renal function. There is no indication for any dialytic intervention. 4. Hypertension, stable. Due to the decreased dose of lisinopril, I increased hydralazine to 100 mg tablet t.i.d. 5. Confusion - consider the possibility of early dementia with this patient. Job ID: [id number]
[2019-06-25] MEDS: Insulin Regular 300 UNITS/3 ML VIAL SC PRN (12:58)
--- NOTE | 2019-06-25 15:09 | PQF ---
CLINICAL DOCUMENTATION IMPROVEMENT CLARIFICATION FORM: ICD-10 Updated PLEASE DO AN ADDENDUM TO THE PROGRESS NOTE WITH ANY DOCUMENTATION UPDATES OR ADDITIONS AND CARRY THROUGH TO DC SUMMARY. THANK YOU. DATE: 06/25/2019; 06/26/2019 ATTN: Dr. Marshall Please exercise your independent, professional judgment in responding to the clarification form. Clinical indicators are provided on the bottom of this form for your review Please check appropriate box(s): [ ] Hyponatremia please specify etiology, if known [ y ] Insignificant lab value not related to Hyponatremia. [ ] Other diagnosis [ ] Unable to determine In addition, please specify: Present on Admission (POA): [ y] Yes [ ] No [ ] Unable to determine For continuity of documentation, please document condition throughout progress notes and discharge summary. Thank You. CLINICAL INDICATORS - SIGNS / SYMPTOMS/ LABS are present in the medical record: 06/19 06/21 06/22 06/24 06/25 LABS: Sodium 137 133 132 134 137 RISKS: PN 06/23: Acute on Chronic renal failure. CKD 3. 06/23 (Giraldo) The pt was on diuretics and this has been discontinued. TREATMENT: Order 06/19-06/22: 1/2 Normal Saline IV 80 mls/hr Lab Order for BMP - 06/19 through 06/24 Thank you, Evelina (This form is maintained as a part of the permanent medical record) 2015 [employer] All Rights Reserved Evelina Grier RN, BSN [email or web address] Office: [phone] [facility]
[2019-06-25] MEDS: Sotalol HCl 80 MG TAB PO SCH (21:10)
[2019-06-25] MEDS: Atorvastatin Calcium 10 MG TAB PO SCH (21:10)
[2019-06-25] MEDS: Apixaban 2.5 MG TAB PO SCH (21:11)
[2019-06-25] MEDS: Loratadine 10 MG TAB PO SCH (21:11)
[2019-06-25] MEDS: Melatonin 3 MG TAB PO SCH (22:26)
[2019-06-26 05:38] LABS: #Eosinphils 0.1 thou/uL (0.0-0.7); #Lymphocytes 1.1 thou/uL (1.20-3.40); #Monocytes 0.6 thou/uL (0.11-0.59); #Neutrophils 5.6 thou/uL (1.40-6.50); %Eosinophils 1.6 % (0.0-10.0); %Lymphocytes 14.3 % (21.0-51.0); %Monocytes 8.3 % (0.0-10.0); %Neutrophils 75.9 % (42.0-75.0); Hemoglobin 8.7 g/dL (12.0-16.0); Mean Corpuscular HGB CONC 31.3 g/dL (32.0-36.0); Mean Corpuscular Hemoglobin 25.3 pg (27.0-31.0); Mean Corpuscular Volume 80.7 fL (78.0-98.0); Mean Platelet Volume 8.6 fL (7.4-10.4); Platelet Count 304 thou/uL (130-400); RBC Distribution Width 17.5 % (11.5-14.5); Red Blood Cell (RBC) Count 3.44 mill/uL (4.20-5.40); White Blood Cell (WBC) Count 7.3 thou/uL (4.8-10.8)
[2019-06-26 05:57] LABS: Anion Gap 13 mmol/L (10-20); BUN (Urea Nitrogen) 58 mg/dL (9.8-20.1); Calc. Creatinine Clearance 34 mL/min (70-130); Calcium 8.7 mg/dL (7.8-10.44); Carbon Dioxide 23 mmol/L (23-31); Chloride 107 mmol/L (98-107); Estimated GFR-MDRD 35; Glucose 106 mg/dL (83-110); Potassium 4.8 mmol/L (3.5-5.1); Sodium 138 mmol/L (136-145)
[2019-06-26 06:23] LABS: Thyroid Stimulating Hormone 1.9219 uIU/mL (0.35-4.94)
[2019-06-26] MEDS: Acetaminophen/Codeine 30-300mg Tablet PO PRN (06:25)
[2019-06-26] MEDS: Digoxin 0.125 MG TAB PO SCH (08:52)
[2019-06-26] MEDS: Apixaban 2.5 MG TAB PO SCH ×2 (08:52→19:57)
[2019-06-26] MEDS: Ferrous Sulfate 325 MG TAB PO SCH ×3 (08:52→18:06)
[2019-06-26] MEDS: Allopurinol 100 MG TAB PO SCH (08:52)
[2019-06-26] MEDS: Aspirin 81 mg Enteric Coated Tablet PO SCH (08:52)
[2019-06-26] MEDS: guaiFENesin ER 600 MG TAB PO SCH ×2 (08:52→19:59)
[2019-06-26] MEDS: Fluticasone Propionate Nasal Spray 16 gm Bottle NASAL SCH ×2 (08:53→20:33)
[2019-06-26] MEDS: Lisinopril 20 MG TAB PO SCH (10:15)
--- NOTE | 2019-06-26 10:32 | PRG ---
DATE OF SERVICE: 06/26/2019 SUBJECTIVE: Ms. Araujo is a 73-year-old black female, followed up for acute kidney injury on top of her chronic renal failure. Yesterday, I decreased the dose of lisinopril from 40 to 20 mg tablet once a day to see if we could get further improvement in the renal function. At the same time, hydralazine has been increased to 100 mg tablet t.i.d. She is less confused today. No complaints of chest pain or shortness of breath. OBJECTIVE: VITAL SIGNS: Blood pressure 117/62, heart rate 62, respiratory rate 22, temperature 98.1, pulse ox 100%. GENERAL: The patient is awake, supine, comfortable, not in distress. SKIN: Adequate turgor. HEENT: She has pinkish conjunctivae. Anicteric sclerae. NECK: No neck mass. No carotid bruits. No JVD. CHEST: No deformities. LUNGS: Clear breath sounds. No wheezing. No crackles. HEART: Normal sinus rhythm. No murmur. No gallops. No rubs. ABDOMEN: Globular, soft, nontender. No masses. EXTREMITIES: No edema. No deformities. MEDICATIONS: Medications of June 26, 2019, were reviewed. LABORATORY DATA: Laboratories of June 26, 2019; white count 7.2 hemoglobin 8.7. Sodium 138, potassium 4.8, chloride 107, carbon dioxide 23, BUN 58, creatinine 1.72, calcium 8.7, folate 4.3, vitamin B12 of 561, TSH 1.9. ASSESSMENT AND PLAN: 1. Acute kidney injury/chronic renal failure, relatively stable renal function. Creatinine noted at 1.71, yesterday this was 1.67. In the next few days, if there is no improvement, consider discontinuing lisinopril completely. I think we can do that since the patient's blood pressure is well controlled. She does not have proteinuria in the urinalysis. 2. Decreased vitamin, decreased folate-folate supplementation, folic acid 1 mg tablet daily. 3. Confusion. Continue supportive care. Consider possibility of underlying dementia. Job ID: [id number]
[2019-06-26] MEDS: hydrALAZINE 25 MG TAB PO SCH ×3 (12:10→19:58)
[2019-06-26] MEDS ORDERED: Melatonin 3 MG TAB PO PRN (15:50)
[2019-06-26] MEDS: Acetaminophen 325 MG TAB PO PRN (19:55)
[2019-06-26] MEDS: Atorvastatin Calcium 10 MG TAB PO SCH (19:59)
[2019-06-26] MEDS: Sotalol HCl 80 MG TAB PO SCH (20:00)
[2019-06-26] MEDS: Loratadine 10 MG TAB PO SCH (20:00)
--- NOTE | 2019-06-27 06:42 | PRG ---
DATE OF SERVICE: 06/27/2019 SUBJECTIVE: Ms. Araujo is a 73-year-old black female, who was seen by the Renal Service for her acute kidney injury and hypertension. Adjustment with her BP medications have been done. The patient has been intermittently confused but is less confused this morning. No complaints of chest pain or shortness of breath. OBJECTIVE: VITAL SIGNS: Blood pressure 128/67, respiratory rate 18, and pulse ox 97%. GENERAL: Noted to be awake, alert, comfortable, not in distress. SKIN: Adequate turgor. HEENT: She has slightly pale conjunctivae. Anicteric sclerae. NECK: No neck mass. No carotid bruits. No JVD. CHEST: No deformities. LUNGS: Clear breath sounds. No wheezing. No crackles. HEART: Normal sinus rhythm. No murmur. No gallops. No rubs. ABDOMEN: Globular. Soft, nontender. No masses. EXTREMITIES: No edema. No deformities. MEDICATIONS: Medications of June 27, 2019, reviewed. LABORATORY DATA: Laboratories of June 27, 2019; currently pending. June 26, 2019; potassium was 4.8, BUN 58, and creatinine 1.72. Hemoglobin was 8.7. ASSESSMENT AND PLAN: 1. Acute kidney injury/chronic renal failure, stabilizing renal function. Please note, lisinopril was discontinued yesterday to see if she could have further improvement with her renal function. For the moment, continue supportive care. Diuretics have been placed on hold. 2. Borderline anemia. Continue to observe. Recheck CBC again. Please note, the patient's folic acid was on the low side and for that reason, she was started on folate 1 mg tablet daily. We will recheck basic metabolic panel and CBC in a.m. 3. HTN - Acceptable control - off Lisinopril - continue hydralazine and beta blockers Job ID: [id number] [facility]
[2019-06-27 07:12] LABS: #Eosinphils 0.2 thou/uL (0.0-0.7); #Lymphocytes 1.2 thou/uL (1.20-3.40); #Monocytes 0.6 thou/uL (0.11-0.59); #Neutrophils 6.1 thou/uL (1.40-6.50); %Basophils 0.1 % (0.0-1.0); %Lymphocytes 14.6 % (21.0-51.0); %Monocytes 7.8 % (0.0-10.0); %Neutrophils 75.5 % (42.0-75.0); Hemoglobin 8.8 g/dL (12.0-16.0); Mean Corpuscular HGB CONC 31.8 g/dL (32.0-36.0); Mean Corpuscular Hemoglobin 25.8 pg (27.0-31.0); Mean Platelet Volume 8.9 fL (7.4-10.4); Platelet Count 293 thou/uL (130-400); RBC Distribution Width 17.4 % (11.5-14.5); Red Blood Cell (RBC) Count 3.42 mill/uL (4.20-5.40)
[2019-06-27 07:25] LABS: Anion Gap 14 mmol/L (10-20); BUN (Urea Nitrogen) 57 mg/dL (9.8-20.1); Calc. Creatinine Clearance 34 mL/min (70-130); Calcium 8.7 mg/dL (7.8-10.44); Carbon Dioxide 22 mmol/L (23-31); Chloride 106 mmol/L (98-107); Estimated GFR-MDRD 35; Glucose 176 mg/dL (83-110); Potassium 4.5 mmol/L (3.5-5.1); Sodium 137 mmol/L (136-145)
[2019-06-27] MEDS: Apixaban 2.5 MG TAB PO SCH ×2 (08:01→19:50)
[2019-06-27] MEDS: guaiFENesin ER 600 MG TAB PO SCH ×2 (08:01→19:50)
[2019-06-27] MEDS: hydrALAZINE 25 MG TAB PO SCH ×3 (08:01→19:52)
[2019-06-27] MEDS: Digoxin 0.125 MG TAB PO SCH (08:01)
[2019-06-27] MEDS: Folic Acid 1 MG TAB PO SCH (08:02)
[2019-06-27] MEDS: Allopurinol 100 MG TAB PO SCH (08:02)
[2019-06-27] MEDS: Ferrous Sulfate 325 MG TAB PO SCH ×3 (08:02→17:35)
[2019-06-27] MEDS: Fluticasone Propionate Nasal Spray 16 gm Bottle NASAL SCH (08:02)
[2019-06-27] MEDS: Aspirin 81 mg Enteric Coated Tablet PO SCH (08:02)
--- NOTE | 2019-06-27 15:44 | EKG ---
Test Reason : SOB Blood Pressure : / mmHG Vent. Rate : 060 BPM Atrial Rate : 060 BPM P-R Int : 000 ms QRS Dur : 086 ms QT Int : 380 ms P-R-T Axes : 000 -09 115 degrees QTc Int : 380 ms Electronic atrial pacemaker Possible Anterior infarct , age undetermined Abnormal ECG Confirmed by JULISA PENA ([id number]), art editor MAX ALEMAN ([id number]) on 06/27/2019 3:44:34 PM Referred By: DR HORTON Confirmed By:JULISA PENA
[2019-06-27] MEDS: Acetaminophen 325 MG TAB PO PRN (18:26)
[2019-06-27] MEDS: Sotalol HCl 80 MG TAB PO SCH (19:49)
[2019-06-27] MEDS: Atorvastatin Calcium 10 MG TAB PO SCH (19:50)
[2019-06-27] MEDS: Loratadine 10 MG TAB PO SCH (19:50)
[2019-06-28 05:44] LABS: #Eosinphils 0.2 thou/uL (0.0-0.7); #Lymphocytes 1.1 thou/uL (1.20-3.40); #Monocytes 0.5 thou/uL (0.11-0.59); #Neutrophils 6.4 thou/uL (1.40-6.50); %Basophils 0.5 % (0.0-1.0); %Eosinophils 2.4 % (0.0-10.0); %Lymphocytes 12.8 % (21.0-51.0); %Monocytes 6.6 % (0.0-10.0); %Neutrophils 77.7 % (42.0-75.0); Hemoglobin 8.8 g/dL (12.0-16.0); Mean Corpuscular HGB CONC 31.5 g/dL (32.0-36.0); Mean Corpuscular Hemoglobin 25.4 pg (27.0-31.0); Mean Corpuscular Volume 80.7 fL (78.0-98.0); Mean Platelet Volume 8.6 fL (7.4-10.4); Platelet Count 265 thou/uL (130-400); RBC Distribution Width 17.4 % (11.5-14.5); Red Blood Cell (RBC) Count 3.45 mill/uL (4.20-5.40); White Blood Cell (WBC) Count 8.2 thou/uL (4.8-10.8)
[2019-06-28 06:02] LABS: Anion Gap 11 mmol/L (10-20); BUN (Urea Nitrogen) 52 mg/dL (9.8-20.1); Calc. Creatinine Clearance 35 mL/min (70-130); Calcium 8.9 mg/dL (7.8-10.44); Carbon Dioxide 22 mmol/L (23-31); Chloride 108 mmol/L (98-107); Estimated GFR-MDRD 35; Glucose 160 mg/dL (83-110); Potassium 4.4 mmol/L (3.5-5.1); Sodium 137 mmol/L (136-145)
[2019-06-28] MEDS: hydrALAZINE 25 MG TAB PO SCH ×3 (07:40→21:53)
[2019-06-28] MEDS: Aspirin 81 mg Enteric Coated Tablet PO SCH (07:41)
[2019-06-28] MEDS: guaiFENesin ER 600 MG TAB PO SCH ×2 (07:41→21:54)
[2019-06-28] MEDS: Ferrous Sulfate 325 MG TAB PO SCH ×3 (07:41→16:46)
[2019-06-28] MEDS: Digoxin 0.125 MG TAB PO SCH (07:41)
[2019-06-28] MEDS: Folic Acid 1 MG TAB PO SCH (07:41)
[2019-06-28] MEDS: Allopurinol 100 MG TAB PO SCH (07:41)
[2019-06-28] MEDS: Fluticasone Propionate Nasal Spray 16 gm Bottle NASAL SCH (07:42)
[2019-06-28] MEDS: Apixaban 2.5 MG TAB PO SCH ×2 (07:42→21:54)
[2019-06-28] MEDS: Acetaminophen 325 MG TAB PO PRN ×2 (09:56→16:46)
[2019-06-28] MEDS: Loratadine 10 MG TAB PO SCH (21:53)
[2019-06-28] MEDS: Atorvastatin Calcium 10 MG TAB PO SCH (21:53)
[2019-06-28] MEDS: Sotalol HCl 80 MG TAB PO SCH (21:53)
[2019-06-29 05:54] LABS: #Eosinphils 0.2 thou/uL (0.0-0.7); #Lymphocytes 1.1 thou/uL (1.20-3.40); #Monocytes 0.7 thou/uL (0.11-0.59); #Neutrophils 6.4 thou/uL (1.40-6.50); %Basophils 0.2 % (0.0-1.0); %Eosinophils 2.8 % (0.0-10.0); %Lymphocytes 13.2 % (21.0-51.0); %Monocytes 8.1 % (0.0-10.0); %Neutrophils 75.8 % (42.0-75.0); Mean Corpuscular HGB CONC 31.4 g/dL (32.0-36.0); Mean Corpuscular Hemoglobin 25.4 pg (27.0-31.0); Mean Platelet Volume 8.9 fL (7.4-10.4); Platelet Count 267 thou/uL (130-400); RBC Distribution Width 17.1 % (11.5-14.5); Red Blood Cell (RBC) Count 3.53 mill/uL (4.20-5.40); White Blood Cell (WBC) Count 8.5 thou/uL (4.8-10.8)
[2019-06-29 06:27] LABS: Anion Gap 12 mmol/L (10-20); BUN (Urea Nitrogen) 50 mg/dL (9.8-20.1); Calc. Creatinine Clearance 32 mL/min (70-130); Calcium 8.7 mg/dL (7.8-10.44); Carbon Dioxide 22 mmol/L (23-31); Chloride 107 mmol/L (98-107); Estimated GFR-MDRD 33; Glucose 181 mg/dL (83-110); Potassium 4.4 mmol/L (3.5-5.1); Sodium 137 mmol/L (136-145)
[2019-06-29] MEDS: Insulin Regular 300 UNITS/3 ML VIAL SC PRN ×2 (06:39→17:20)
[2019-06-29] MEDS: hydrALAZINE 25 MG TAB PO SCH ×3 (08:31→20:13)
[2019-06-29] MEDS: Digoxin 0.125 MG TAB PO SCH (08:32)
[2019-06-29] MEDS: Aspirin 81 mg Enteric Coated Tablet PO SCH (08:32)
[2019-06-29] MEDS: Folic Acid 1 MG TAB PO SCH (08:33)
[2019-06-29] MEDS: Ferrous Sulfate 325 MG TAB PO SCH ×3 (08:33→17:06)
[2019-06-29] MEDS: Allopurinol 100 MG TAB PO SCH (08:33)
[2019-06-29] MEDS: guaiFENesin ER 600 MG TAB PO SCH ×2 (08:34→20:14)
[2019-06-29] MEDS: Fluticasone Propionate Nasal Spray 16 gm Bottle NASAL SCH (08:38)
[2019-06-29] MEDS: Apixaban 2.5 MG TAB PO SCH ×2 (08:44→20:13)
--- NOTE | 2019-06-29 09:53 | PRG ---
DATE OF SERVICE: 06/29/2019 SUBJECTIVE: Ms. Araujo is a 73-year-old black female, followed up for her acute kidney injury/chronic renal failure. Adjustment with her BP medications were also done. We have discontinued lisinopril. No other complaints today. She is still intermittently confused at times. No complaints of chest pain or shortness of breath. OBJECTIVE: VITAL SIGNS: Blood pressure 123/68, heart rate 68, respiratory rate 16, temperature 97.4, and pulse ox 98%. GENERAL: Noted to be awake, alert, comfortable, not in distress. SKIN: Adequate turgor. HEENT: Pinkish conjunctivae. Anicteric sclerae. NECK: No neck mass. No carotid bruits. No JVD. CHEST: No deformities. LUNGS: Clear breath sounds. HEART: Normal sinus rhythm. No murmurs. No gallops. No rubs. ABDOMEN: Globular, soft, and nontender. No masses. EXTREMITIES: No edema. No deformities. LABORATORY DATA: Laboratories of June 29, 2019; sodium 137, potassium 4.4, chloride 107, carbon dioxide 22, BUN 50, creatinine 1.83, and calcium 8.3. White count 8.5, hemoglobin 9. ASSESSMENT AND PLAN: 1. Acute kidney injury/chronic renal failure. Creatinine relatively stable, although the creatinine was noted to be 1.8 and yesterday this was 1.7. Please note, she is off lisinopril. Should the renal function further worsen, we may need to give this patient an empiric volume repletion. 2. Hypertension, excellent control. Due to the borderline low heart rate, my bias is to decrease her Cardizem dosing or hold it off temporarily since the patient is already on a near maximal dose of metoprolol - we will proceed with this and continue Cardizem. We will recheck basic metabolic and CBC in a.m. Overall agree with current management. Job ID: [id number]
[2019-06-29] MEDS: Acetaminophen 325 MG TAB PO PRN ×2 (20:12)
[2019-06-29] MEDS: Sotalol HCl 80 MG TAB PO SCH (20:13)
[2019-06-29] MEDS: Atorvastatin Calcium 10 MG TAB PO SCH (20:14)
[2019-06-29] MEDS: Loratadine 10 MG TAB PO SCH (20:26)
[2019-06-29] MEDS ORDERED: Insulin Glargine 10 UNITS in Pre-Filled Syringe SC SCH (21:00)
[2019-06-30] MEDS: Insulin Regular 300 UNITS/3 ML VIAL SC PRN ×2 (06:07→14:41)
[2019-06-30 06:09] LABS: #Eosinphils 0.3 thou/uL (0.0-0.7); #Lymphocytes 0.9 thou/uL (1.20-3.40); #Monocytes 0.6 thou/uL (0.11-0.59); #Neutrophils 5.1 thou/uL (1.40-6.50); %Basophils 0.5 % (0.0-1.0); %Eosinophils 4.2 % (0.0-10.0); %Lymphocytes 12.9 % (21.0-51.0); %Neutrophils 73.3 % (42.0-75.0); Hemoglobin 9.1 g/dL (12.0-16.0); Mean Corpuscular Hemoglobin 25.2 pg (27.0-31.0); Mean Corpuscular Volume 81.4 fL (78.0-98.0); Mean Platelet Volume 8.7 fL (7.4-10.4); Platelet Count 251 thou/uL (130-400); RBC Distribution Width 17.2 % (11.5-14.5); Red Blood Cell (RBC) Count 3.61 mill/uL (4.20-5.40)
[2019-06-30 06:30] LABS: Anion Gap 12 mmol/L (10-20); BUN (Urea Nitrogen) 37 mg/dL (9.8-20.1); Calc. Creatinine Clearance 38 mL/min (70-130); Carbon Dioxide 22 mmol/L (23-31); Chloride 109 mmol/L (98-107); Estimated GFR-MDRD 39; Glucose 160 mg/dL (83-110); Potassium 4.4 mmol/L (3.5-5.1); Sodium 139 mmol/L (136-145)
[2019-06-30 07:23] VITALS: BP 129/65; TEMP 97.3
[2019-06-30] MEDS: hydrALAZINE 25 MG TAB PO SCH (08:41)
[2019-06-30] MEDS: Digoxin 0.125 MG TAB PO SCH (08:42)
[2019-06-30] MEDS: Acetaminophen 325 MG TAB PO PRN ×2 (08:42→14:47)
[2019-06-30] MEDS: Allopurinol 100 MG TAB PO SCH (08:42)
[2019-06-30] MEDS: guaiFENesin ER 600 MG TAB PO SCH (08:43)
[2019-06-30] MEDS: Ferrous Sulfate 325 MG TAB PO SCH ×2 (08:43→08:58)
[2019-06-30] MEDS: Folic Acid 1 MG TAB PO SCH (08:44)
[2019-06-30] MEDS: Aspirin 81 mg Enteric Coated Tablet PO SCH (08:44)
[2019-06-30] MEDS: Apixaban 2.5 MG TAB PO SCH (08:46)
[2019-06-30] MEDS: Fluticasone Propionate Nasal Spray 16 gm Bottle NASAL SCH (08:49)
--- NOTE | 2019-07-01 10:33 | DIS ---
DATE OF ADMISSION: 06/19/2019 DATE OF DISCHARGE: 06/30/2019 ADMITTING DIAGNOSES: 1. Symptomatic anemia. 2. Weakness. 3. Unstable gait. 4. Uncontrolled hypertension. 5. Diabetes mellitus. 6. Chronic kidney disease. 7. Atrial fibrillation, chronic. 8. Status post ablation for atrial flutter. 9. Status post AICD placement. 10. History of gout. FINAL DIAGNOSES: 1. Symptomatic anemia, improved. 2. Weakness, improved. 3. Uncontrolled hypertension, improved. 4. Acute kidney injury, improved. 5. Chronic kidney disease stage 3. 6. History of coronary artery disease. 7. Diabetes mellitus. 8. History of chronic atrial fibrillation. 9. Status post AICD placement. 10. History of gout. 11. left breast mass, which requires biopsy. BRIEF SUMMARY OF HOSPITAL COURSE: Ms. Araujo is a 73-year-old female admitted because of anemia and weakness, shortness of breath. The patient's hemoglobin was 8.7 on admission, but it remained stable between 8 and 9. Her weakness gradually improved, but she was found to have uncontrolled hypertension , which was improved with adjustment of medications, but her renal function got worse. Initially, she was given volume repletion, but renal function got worse ___. In view of that, her IV fluids were stopped and consultation was done with Nephrology. The patient was seen by Dr. Giraldo. He felt the patient's medication lisinopril dose decreased initially as well as obtain a renal ultrasound as well and proper control of blood pressure, so her renal function was monitored in the next few days. Her creatinine which was 1.89 initially, went up to 2, but came down now to 1.55. Her BUN also came down from 60 to 37. Her lisinopril was finally completely stopped. Her Cardizem dose was increased to control the blood pressure. Her heart rate has remained around 60s. The patient did have episodes of confusion, but it got resolved after stopping her narcotic pain medications. The patient was started on physical therapy as she is still not ambulating, but able to get up and sit in the chair. The patient's family is unable to manage her, so she was accepted at [facility]. She is being transferred there. She also has a left breast mass diagnosed a few weeks ago, supposed to have biopsy done, so we will reschedule again for biopsy as an outpatient. So in view of improvement, the patient is discharged. At the time of discharge, she was stable, her vital signs stable, lungs clear, heart sounds regular, abdomen is soft and nontender, bowel sounds present. DISCHARGE MEDICATIONS: 1. Diltiazem 240 mg daily. 2. Sotalol 80 mg at bedtime. 3. Digoxin 125 mcg daily. 4. Aspirin 81 mg daily. 5. Ferrous sulfate 325 mg t.i.d. 6. Eliquis 2.5 mg b.i.d. 7. DuoNeb q.i.d. p.r.n. 8. Metoprolol 100 mg daily. 9. Melatonin 3 mg at bedtime p.r.n. 10. Hydralazine 100 mg t.i.d. 11. Claritin 10 mg daily. 12. Mucinex 600 b.i.d. for 10 days. 13. Folic acid 1 mg daily. 14. Flonase nasal spray daily. 15. Lipitor 10 mg at bedtime. 16. Tylenol p.r.n. 17. Lantus insulin 15 units daily. [facility] and she will go for a left breast mass biopsy next week. Job ID: [id number] [facility]
== END 2019-06-30 15:00 | DRG 682 ==
LOC: ERS 13:49 → OBSVTOIN 16:28 → T4-A 16:28
PROVIDERS: ADMIT Internal Medicine; ATTEND Internal Medicine
PROC: 3E0234Z Introduction of Serum, Toxoid and Vaccine into Muscle, Percutaneous Approach (ICD-10-PCS; principal; 2019-06-20)
DX: N17.9 Acute kidney failure, unspecified (principal); G93.41 Metabolic encephalopathy; I48.20 Chronic atrial fibrillation, unspecified; I13.0 Hypertensive heart and chronic kidney disease with heart failure and stage 1 through stage 4 chronic kidney disease, or unspecified chronic kidney disease; D63.1 Anemia in chronic kidney disease; E11.22 Type 2 diabetes mellitus with diabetic chronic kidney disease; N18.3 Chronic kidney disease, stage 3 (moderate); E78.5 Hyperlipidemia, unspecified; M10.9 Gout, unspecified; J44.9 Chronic obstructive pulmonary disease, unspecified; I25.10 Atherosclerotic heart disease of native coronary artery without angina pectoris; G89.29 Other chronic pain; M54.9 Dorsalgia, unspecified; I50.9 Heart failure, unspecified; Z96.652 Presence of left artificial knee joint; E86.0 Dehydration; Z23 Encounter for immunization; Z95.810 Presence of automatic (implantable) cardiac defibrillator; Z79.899 Other long term (current) drug therapy; Z79.01 Long term (current) use of anticoagulants; Z79.4 Long term (current) use of insulin
CPT/HCPCS: 36415; 36416; 70450; 71045; 76770; 80048; 80053; 81001; 82140; 82553; 82607; 82746; 83880; 84425; 84443; 84484; 85014; 85018; 85025; 87045; 87046; 87324; 87427; 87449; 90471; 90662; 90670; 93005; 94640; G0008; G0009; J1815; J1885; J7512; J7620

== ENCOUNTER 2019-07-02 14:32 | Emergency (ER) | payer MEDICARE, MEDICAID ==
[~2019-07-02 14:32] MED LIST: ISOVUE-370 76%-LOCM 1 ML ONE
[2019-07-02 16:06] LABS: Hemoglobin 8.7 g/dL (12.0-16.0); Mean Corpuscular HGB CONC 29.9 g/dL (32.0-36.0); Mean Corpuscular Hemoglobin 24.2 pg (27.0-31.0); Mean Platelet Volume 9.3 fL (7.4-10.4); Platelet Count 238 thou/uL (130-400); RBC Distribution Width 17.3 % (11.5-14.5); Red Blood Cell (RBC) Count 3.58 mill/uL (4.20-5.40)
[2019-07-02 16:15] LABS: ALT (SGPT) 18 U/L (8-55); AST (SGOT) 14 U/L (5-34); Albumin 3.2 g/dL (3.4-4.8); Alkaline Phosphatase 92 U/L (40-110); Anion Gap 10 mmol/L (10-20); BUN (Urea Nitrogen) 48 mg/dL (9.8-20.1); Bilirubin, Total 0.2 mg/dL (0.2-1.2); Calc. Creatinine Clearance 0 mL/min (70-130); Calcium 9.1 mg/dL (7.8-10.44); Carbon Dioxide 27 mmol/L (23-31); Chloride 109 mmol/L (98-107); Estimated GFR-MDRD 33; Globulin 2.8 g/dL (2.4-3.5); Glucose 114 mg/dL (83-110); Potassium 5.2 mmol/L (3.5-5.1); Sodium 141 mmol/L (136-145)
[2019-07-02 16:27] LABS: #Eosinphils 0.1 thou/uL (0.0-0.7); #Lymphocytes 1.6 thou/uL (1.20-3.40); #Monocytes 1.2 thou/uL (0.11-0.59); %Basophils 0.2 % (0.0-1.0); %Eosinophils 1.8 % (0.0-10.0); %Lymphocytes 20.4 % (21.0-51.0); %Monocytes 14.6 % (0.0-10.0); %Neutrophils 62.9 % (42.0-75.0); Anisocytosis SLIGHT = 6-15 cells (100X) (0-5/hpf); Elliptocytes SLIGHT = 2-5 cells (100X) (0-1/hpf); Hypochromia SLIGHT = 6-15 cells (100X) (0-5/hpf); MDiff Complete? YES; Platelet Morphology Comment Appears Adequate
[2019-07-02 16:38] LABS: CKMB 1.8 ng/mL (0-6.6)
--- NOTE | 2019-07-02 18:47 | CT ---
CT ANGIOGRAM THORAX WITH IV CONTRAST AND 3-D RECONSTRUCTIONS CLINICAL INDICATION: Shortness of breath. COMPARISON: 11/13/2013 FINDINGS: Pulmonary arteries: No filling defects are seen in the pulmonary arteries to suggest a pulmonary embo maddie. Aorta: The aorta is normal in caliber without evidence of an aortic dissection. Vascular calcificatio ns are seen. Lungs: Small bilateral pleural effusions are seen greater on the left. Consolidation is seen at the l eft lung base which be related to passive atelectasis, but infiltrate/pneumonia cannot be entirely excluded. No discrete pulmonary nodule or mass is seen. There is suggestion of small amount of debris within a few left lower lobe bronchi. Mediastinum: Nonenlarged lymph nodes are seen. The heart is mildly enlarged. A multilead left subclav imer AICD device is again noted in place. Coronary artery calcifications are seen. There is a tiny pericardial effusion identified. Thyroid gland: Prominent in size with subcentimeter hypodense lesion left lobe of thyroid gland and c alcification again seen in the right lobe of the thyroid gland. Hypodense nodule in the left lobe also was present on the prior study in 2013. Osseous structures: Postsurgical changes right humerus related to internal fixation of a proximal rig ht humeral fracture are seen. Multilevel degenerative changes are seen in the spine. Chest wall: There is mild subcutaneous edema seen greater in the region of each flank. Upper abdomen: Dense vascular calcifications and atherosclerotic plaque are seen in the visualized pr oximal abdominal aorta. A small hiatal hernia is identified. IMPRESSION: 1. No CT evidence of a pulmonary embolus. 2. Small bilateral pleural effusions. 3. Consolidation left lung base which could be related to atelectasis, but infiltrate/pneumonia which is aspiration pneumonitis is a possibility. 4. Small amount of debris in a few left lower lobe bronchi 5. Mild cardiomegaly with tiny pericardial effusion. 6. Vascular calcifications. 7. Subcutaneous edema. 8. Small hiatal hernia.
--- NOTE | 2019-07-02 19:35 | RAD ---
TWO VIEW CHEST: 07/02/19 HISTORY: Chest pain. COMPARISON: 07/27/17. Mild cardiomegaly. AICD leads again noted. Left lung base is poorly evaluated due to positioning. I c annot exclude a left basilar atelectasis or infiltrate. Right lung appears clear. IMPRESSION: Suboptimal evaluation of the left lung base due to positioning. Left basilar process cannot be exclud ed on this study. Lungs otherwise appear clear and unchanged. POS: [facility]
--- NOTE | 2019-07-02 19:43 | RAD ---
RIGHT SHOULDER: 07/02/19 Three views. INDICATIONS: Joint pain. There has been prior internal fixation across the right humerus with intramedullary ikran and screws. F racture is seen involving the proximal humerus; however, this may be from the previous injury that re quired fixation. There are no comparison studies. The fracture fragments appear corticated and old. A C joint normally aligned. IMPRESSION: Fracture of the proximal humerus appears old. There has been prior internal fixation. No acute proces s identified. POS: [facility]
== END 2019-07-02 20:42 | disposition home or self-care (01) ==
LOC: ERS 14:32
DX: N28.9 Disorder of kidney and ureter, unspecified (principal); R62.7 Adult failure to thrive; M25.511 Pain in right shoulder; I11.0 Hypertensive heart disease with heart failure; I50.9 Heart failure, unspecified; E11.9 Type 2 diabetes mellitus without complications; I49.9 Cardiac arrhythmia, unspecified; I48.91 Unspecified atrial fibrillation; M10.9 Gout, unspecified
CPT/HCPCS: 36415; 71046; 71275; 80053; 82553; 83605; 84443; 84484; 85025; 87040; 93005; 96360

== ENCOUNTER 2019-07-13 10:30 | Emergency (ER) | payer MEDICARE, OTHER ==
[2019-07-13 11:36] LABS: #Eosinphils 0.2 thou/uL (0.0-0.7); #Lymphocytes 0.7 thou/uL (1.20-3.40); #Monocytes 0.4 thou/uL (0.11-0.59); #Neutrophils 3.5 thou/uL (1.40-6.50); %Basophils 0.1 % (0.0-1.0); %Eosinophils 3.6 % (0.0-10.0); %Lymphocytes 15.4 % (21.0-51.0); %Monocytes 8.2 % (0.0-10.0); %Neutrophils 72.7 % (42.0-75.0); Hemoglobin 8.6 g/dL (12.0-16.0); Mean Corpuscular HGB CONC 30.1 g/dL (32.0-36.0); Mean Corpuscular Hemoglobin 23.6 pg (27.0-31.0); Mean Corpuscular Volume 78.4 fL (78.0-98.0); Platelet Count 223 thou/uL (130-400); RBC Distribution Width 16.1 % (11.5-14.5); Red Blood Cell (RBC) Count 3.63 mill/uL (4.20-5.40); White Blood Cell (WBC) Count 4.8 thou/uL (4.8-10.8)
[2019-07-13 11:39] LABS: INR-International Normal Ratio 1.1; PTT 27.8 SEC (22.9-36.1); Prothrombin Time 13.7 SEC (12.0-14.7)
[2019-07-13 11:50] LABS: ALT (SGPT) 19 U/L (8-55); AST (SGOT) 12 U/L (5-34); Albumin 3.2 g/dL (3.4-4.8); Alkaline Phosphatase 80 U/L (40-110); Anion Gap 15 mmol/L (10-20); BUN (Urea Nitrogen) 46 mg/dL (9.8-20.1); Bilirubin, Total 0.2 mg/dL (0.2-1.2); Calc. Creatinine Clearance 0 mL/min (70-130); Calcium 9.2 mg/dL (7.8-10.44); Carbon Dioxide 24 mmol/L (23-31); Chloride 106 mmol/L (98-107); Estimated GFR-MDRD 48; Globulin 2.8 g/dL (2.4-3.5); Glucose 229 mg/dL (83-110); Potassium 4.4 mmol/L (3.5-5.1); Sodium 141 mmol/L (136-145)
--- NOTE | 2019-07-13 11:53 | CT ---
CT HEAD WITHOUT IV CONTRAST COMPARISON: 06/24/2019 HISTORY: Injury to left side of head after hitting ground secondary to falling out of bed. TECHNIQUE: Axial CT imaging at 5 mm intervals from vertex through skull base without contrast FINDINGS: A subcentimeter low-density focus is seen in the right thalamus also noted on prior exam and likely d ue to remote lacunar infarction. There is also a low-density focus seen within the right lentiform nucleus not visualized on the prior exam and likely related to a lacunar infarction of indeterminate age. There is no evidence of an acute cortical infarction, hemorrhage, mass effect, or midline shift. The ventricular system is normal in size, shape, and position. There is mild cerebral volume l oss. Visualized paranasal sinuses are clear. Osseous structures appear intact.There is a low-density area seen within the left parietal scalp soft tissues at the vertex posteriorly, also present on the prior exam, which may related to area of scarring. IMPRESSION: 1. Lacunar infarction of indeterminate age in the right basal ganglia, but this was not visualized on study of 06/24/2019. 2. Remote lacunar infarction right thalamus. 3. No intraparenchymal or extra-axial hemorrhage is identified.
--- NOTE | 2019-07-13 11:59 | CT ---
EXAM: CT cervical spine PROVIDED CLINICAL HISTORY: Hit left side of body in left side of head on ground after falling out of bed. Injury after a fall. TECHNIQUE: Contiguous axial CT images are obtained through the cervical spine from the skull base to the T2 leve l. Sagittal and coronal reformatted images are provided. COMPARISON: None FINDINGS: Multilevel degenerative changes are seen throughout the cervical spine with multilevel osteophytes an d narrowing of the intervertebral disc spaces. There calcifications involving the anterior longitudinal ligament. No fracture or subluxation is seen involving the cervical spine. The interspinous distances are withi n normal limits. There is rotation at the C1-2 level most likely related to patient head rotation. No prevertebral soft tissue swelling apparent. Visualized lung apices appear clear. Calcification is seen in the right lobe of the thyroid gland. A subcentimeter hypodense nodule is see n in the left lobe of the thyroid gland. This was seen on CTA of the thorax on 07/02/2019. Vascular calcifications are seen in the carotid arteries. IMPRESSION: 1. Multilevel degenerative changes in the cervical spine, but no fracture or subluxation is identifie d. 2. Subcentimeter hypodense nodule left lobe of thyroid gland also seen on CTA chest on 07/02/2019..
== END 2019-07-13 15:20 ==
LOC: ERS 10:30
DX: S09.90XA Unspecified injury of head, initial encounter (principal); N18.9 Chronic kidney disease, unspecified; D63.1 Anemia in chronic kidney disease; I63.81 Other cerebral infarction due to occlusion or stenosis of small artery; I12.9 Hypertensive chronic kidney disease with stage 1 through stage 4 chronic kidney disease, or unspecified chronic kidney disease; E11.22 Type 2 diabetes mellitus with diabetic chronic kidney disease; I49.9 Cardiac arrhythmia, unspecified; I48.91 Unspecified atrial fibrillation; M10.9 Gout, unspecified; Z79.899 Other long term (current) drug therapy; Z79.01 Long term (current) use of anticoagulants; Z79.4 Long term (current) use of insulin; W18.30XA Fall on same level, unspecified, initial encounter
CPT/HCPCS: 36415; 70450; 72125; 80053; 85025; 85610; 85730

== ENCOUNTER → 2019-07-14 | Day surgery (SDC) | payer MEDICARE, MEDICAID ==
--- NOTE | 2019-07-14 10:30 | ULT ---
ULTRASOUND GUIDED LEFT BREAST MASS BIOPSY: INDICATION: Suspicious left breast masses in the 4:00 and 2:00 positions. TECHNIQUE: Informed consent was obtained through the patient's family due to the patient not being fully alert a nd oriented. Preprocedure ultrasound demonstrated the suspicious masses in the left breast 4:00 o'clock and left breast 7:00 o'clock positions. The entire region of the left breast was sterilely pr epped and draped. Buffered 1% lidocaine was administered to the overlying subcutaneous tissues near the left breast 4:00 o'clock lesion, 7 cm from the nipple. A small dermatotomy was made. Three separa te core samples utilizing a 14 gauge core biopsy needle were obtained of the mass in the left breast 4:00 position. A clip was placed via ultrasound and confirmed to be situated within the mass l esion by ultrasound. Attention was then paid to the mass lesion within the left breast 2:00 o'clock position, 4 cm from th e nipple. Three separate core samples were obtained of this lesion utilizing a 14 gauge core biopsy device. A biopsy clip was placed within the mass lesion by ultrasound. Pressure was held at the biops y sites until hemostasis was obtained. IMPRESSION: BI-RADS category 4 - suspicious abnormality. Status post ultrasound guided core biopsy of the left br east mass lesions in the 4:00 o'clock and 2:00 o'clock positions. Transcribed Date/Time: 07/14/2019 11:10 AM
== END ==
LOC: ULT 08:00
PROVIDERS: ATTEND Internal Medicine
PROC: 0H9U3ZX Drainage of Left Breast, Percutaneous Approach, Diagnostic (ICD-10-PCS; principal; 2019-07-14)
DX: C50.512 Malignant neoplasm of lower-outer quadrant of left female breast (principal); D24.2 Benign neoplasm of left breast
CPT/HCPCS: 19083; 19084; 88305; 88341; 88342; 88360

== ENCOUNTER 2019-07-19 20:31 | Emergency (ER) | payer MEDICARE, MEDICAID ==
--- NOTE | 2019-07-19 21:04 | RAD ---
EXAM: CHEST ONE VIEW HISTORY: Chest and abdominal pain. Pain beneath left breast. COMPARISON: 06/19/2019 FINDINGS: A multilead left subclavian AICD device remains in place. The cardiac silhouette is magnified by proj ection but does appear mildly enlarged. Pulmonary vasculature is at the upper limits of normal. No consolidation or pleural fluid is identified. Vascular calcifications are seen in the thoracic aorta. Postsurgical changes right humerus are partially imaged. No other interval change. IMPRESSION: 1. Cardiomegaly with pulmonary vasculature at the upper limits of normal. No definite acute cardiopul monary process is identified.
[2019-07-19] MEDS ORDERED: Morphine 4 MG/ML VIAL ONE (21:12)
[2019-07-19 21:22] LABS: #Eosinphils 0.2 thou/uL (0.0-0.7); #Lymphocytes 1.2 thou/uL (1.20-3.40); #Monocytes 0.6 thou/uL (0.11-0.59); #Neutrophils 4.6 thou/uL (1.40-6.50); %Basophils 0.1 % (0.0-1.0); %Eosinophils 2.8 % (0.0-10.0); %Lymphocytes 18.5 % (21.0-51.0); %Monocytes 8.8 % (0.0-10.0); %Neutrophils 69.8 % (42.0-75.0); Hemoglobin 8.3 g/dL (12.0-16.0); Mean Corpuscular HGB CONC 30.4 g/dL (32.0-36.0); Mean Corpuscular Hemoglobin 23.6 pg (27.0-31.0); Mean Corpuscular Volume 77.8 fL (78.0-98.0); Mean Platelet Volume 8.3 fL (7.4-10.4); Platelet Count 318 thou/uL (130-400); RBC Distribution Width 16.3 % (11.5-14.5); White Blood Cell (WBC) Count 6.6 thou/uL (4.8-10.8)
[2019-07-19 21:35] LABS: ALT (SGPT) 10 U/L (8-55); AST (SGOT) 9 U/L (5-34); Albumin 3.4 g/dL (3.4-4.8); Alkaline Phosphatase 81 U/L (40-110); Anion Gap 13 mmol/L (10-20); BUN (Urea Nitrogen) 34 mg/dL (9.8-20.1); Bilirubin, Total 0.2 mg/dL (0.2-1.2); CK (CPK) 27 U/L (29-168); Calc. Creatinine Clearance 0 mL/min (70-130); Calcium 9.2 mg/dL (7.8-10.44); Carbon Dioxide 30 mmol/L (23-31); Chloride 103 mmol/L (98-107); Estimated GFR-MDRD 47; Globulin 2.7 g/dL (2.4-3.5); Glucose 145 mg/dL (83-110); Lipase Less than 4 U/L (8-78); Potassium 4.4 mmol/L (3.5-5.1); Protein, Total 6.1 g/dL (6.0-8.3); Sodium 142 mmol/L (136-145)
--- NOTE | 2019-07-19 21:52 | CT ---
CT Abdomen Pelvis WO Con 07/19/2019 12:00 AM HISTORY: Chest pain and abdominal pain since yesterday. COMPARISON: CT angiogram thorax on 07/02/2019 Technique: Multiple contiguous axial CT images are obtained through the abdomen and pelvis without IV contrast. Coronal reformats are provided. FINDINGS: This examination is limited for the evaluation of solid organs and vascular structures due to the lac k of intravenous contrast. Lower Chest: There are small bilateral pleural effusions with consolidation again seen at the left gideon ng base. Consolidation at left lung base again may be related to either passive atelectasis or pneumonia. There are AICD leads partially visualized. Trace pericardial effusion is present. Abdomen: Liver: Calcified granuloma is present, but the liver otherwise demonstrates a grossly normal nonenhan miranda CT appearance. Gallbladder: Within normal limits for CT imaging. Pancreas: Grossly normal nonenhanced CT appearance. Spleen: Grossly normal nonenhanced CT appearance. Adrenals: There is mild thickening of each adrenal gland, but this is a stable finding compared to th e prior study as well as a prior CT of the chest on 11/13/2013. Kidneys: No renal calculi are visualized, and there is no evidence of hydronephrosis. Ureters: No ureteral calculus is seen.. Pelvis: Urinary bladder: Mild mass effect from mildly enlarged uterus. Urinary bladder otherwise has a normal nonenhanced CT appearance. Reproductive Organs: There are multiple heterogeneous and increased density masses seen throughout a lobulated uterus likely attributable to multiple uterine fibroids. Lymph Nodes: Limited evaluation due to lack of intravenous contrast, but no definite enlarged lymph n odes are seen. Bowel: Small amount retained fecal material is seen throughout the colon. Colonic diverticulosis is s een. Loops of small bowel are normal in caliber. Appendix: The appendix is normal in caliber. Peritoneum/Retroperitoneum: There is a tiny amount of fluid seen in a presacral location. Vessels: Dense vascular calcifications are seen in the abdominal aorta and involving the iliac arteri es with vascular calcifications seen in the visualized coronary arteries.. Abdominal Wall: Mild subcutaneous edema is seen scattered within the subcutaneous soft tissues. Bones: Multilevel degenerative changes are seen in the spine with multilevel prominent endplate degen erative changes. IMPRESSION: 1. No renal or ureteral calculi are seen bilaterally. 2. No CT evidence of appendicitis. 3. Small bilateral pleural effusions with consolidation at the left lung base which may be related to passive atelectasis. However, associated pneumonia at the left lung base cannot be excluded. 4. Tiny amount of fluid in a presacral location in the lower pelvis. 5. Multiple uterine fibroids. 6. Dense vascular calcifications. 7. Subcutaneous edema. 8. Colonic diverticulosis.
[2019-07-19 22:30] LABS: Bilirubin Negative (Negative); Blood, Urine Negative (Negative); Glucose, Urine (Dipstick) Negative (Negative); Leukocyte Moderate (Negative); Nitrite Positive (Negative); Protein, Urine (Dipstick) Negative (Neg-Trace); Urobilinogen 0.2 mg/dL (Less than 2)
[2019-07-19 22:40] LABS: Clarity Cloudy (Clear)
[2019-07-19 22:41] LABS: Bacteria/HPF 4+ HPF (None Seen); RBC/HPF 0-3 HPF (0-3); Squamous Epithelial 0-3 HPF (0-3)
[2019-07-19] MEDS ORDERED: cefTRIAXone\\ROCEPHIN 1 GM VIAL ONE (22:55)
== END 2019-07-19 23:26 | disposition home or self-care (01) ==
LOC: ERS 20:31
DX: N39.0 Urinary tract infection, site not specified (principal); R07.9 Chest pain, unspecified; I11.0 Hypertensive heart disease with heart failure; I50.9 Heart failure, unspecified; E11.9 Type 2 diabetes mellitus without complications; I49.9 Cardiac arrhythmia, unspecified; I48.91 Unspecified atrial fibrillation; M10.9 Gout, unspecified; Z79.01 Long term (current) use of anticoagulants; Z79.899 Other long term (current) drug therapy; Z79.4 Long term (current) use of insulin
CPT/HCPCS: 51701; 71045; 74176; 80053; 81003; 81015; 82550; 83690; 83880; 84484; 85025; 93005; 96361; 96365; 96375; A4353; J0696; J2270

== ENCOUNTER 2019-08-08 04:03 | Emergency (ER) | payer MEDICARE, OTHER ==
[2019-08-08 05:02] LABS: #Eosinphils 0.2 thou/uL (0.0-0.7); #Lymphocytes 1.2 thou/uL (1.20-3.40); #Monocytes 0.4 thou/uL (0.11-0.59); #Neutrophils 3.5 thou/uL (1.40-6.50); %Basophils 0.2 % (0.0-1.0); %Eosinophils 3.4 % (0.0-10.0); %Lymphocytes 22.7 % (21.0-51.0); %Monocytes 7.7 % (0.0-10.0); Hemoglobin 9.4 g/dL (12.0-16.0); Mean Corpuscular HGB CONC 31.5 g/dL (32.0-36.0); Mean Corpuscular Hemoglobin 24.5 pg (27.0-31.0); Mean Corpuscular Volume 77.8 fL (78.0-98.0); Mean Platelet Volume 9.7 fL (7.4-10.4); Platelet Count 230 thou/uL (130-400); RBC Distribution Width 18.2 % (11.5-14.5); Red Blood Cell (RBC) Count 3.82 mill/uL (4.20-5.40); White Blood Cell (WBC) Count 5.3 thou/uL (4.8-10.8)
[2019-08-08 05:21] LABS: ALT (SGPT) 7 U/L (8-55); AST (SGOT) 10 U/L (5-34); Albumin 3.5 g/dL (3.4-4.8); Alkaline Phosphatase 85 U/L (40-110); Anion Gap 13 mmol/L (10-20); BUN (Urea Nitrogen) 31 mg/dL (9.8-20.1); Bilirubin, Total 0.3 mg/dL (0.2-1.2); Calc. Creatinine Clearance 0 mL/min (70-130); Calcium 9.3 mg/dL (7.8-10.44); Carbon Dioxide 28 mmol/L (23-31); Chloride 101 mmol/L (98-107); Digoxin 1.28 ng/mL (0.8-2.0); Estimated GFR-MDRD 44; Globulin 2.7 g/dL (2.4-3.5); Glucose 94 mg/dL (83-110); Potassium 4.1 mmol/L (3.5-5.1); Protein, Total 6.2 g/dL (6.0-8.3); Sodium 138 mmol/L (136-145)
[2019-08-08 05:35] LABS: Bilirubin Negative (Negative); Blood, Urine Negative (Negative); Clarity Clear (Clear); Glucose, Urine (Dipstick) Normal (Negative); Leukocyte Negative Leu/uL (Negative); Nitrite Negative (Negative); Protein, Urine (Dipstick) 10 mg/dL (Neg-Trace); Urobilinogen Normal mg/dL (Less than 2)
[2019-08-08 05:42] LABS: CKMB 2.4 ng/mL (0-6.6)
--- NOTE | 2019-08-08 07:47 | CT ---
CT OF THE BRAIN WITHOUT CONTRAST: INDICATION: History of breast cancer with altered mental status. COMPARISON: Prior exam dated 07/13/2019 from [facility]. FINDINGS: Mild chronic small-vessel white matter ischemic change is similar-appearing. The tiny lacunar infarc tion suspected in the right basal ganglia and right thalamus are again demonstrated. No definite acu te infarct, hemorrhage, or hydrocephalus is present. Mastoid air cells and paranasal sinuses are anjelica ar. The skull is intact. IMPRESSION: 1. No acute intracranial abnormality. 2. Chronic ischemic change as above. 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 POS: [facility]
== END 2019-08-08 07:00 ==
LOC: ERS 04:03
DX: R44.3 Hallucinations, unspecified (principal); I11.0 Hypertensive heart disease with heart failure; I50.9 Heart failure, unspecified; E11.9 Type 2 diabetes mellitus without complications; I48.91 Unspecified atrial fibrillation; M10.9 Gout, unspecified; Z79.4 Long term (current) use of insulin; Z79.899 Other long term (current) drug therapy; Z79.82 Long term (current) use of aspirin
CPT/HCPCS: 51701; 70450; 80053; 80162; 81003; 82553; 84484; 85025; 93005; A4353

== ENCOUNTER 2019-08-17 13:40 | Emergency (ER) | payer MEDICARE, OTHER ==
--- NOTE | 2019-08-17 14:29 | CT ---
CT Brain WO Con History: Altered mental status Comparison: CT brain August 08, 2019 Findings: No acute hemorrhage or infarct. No midline shift or mass effect. Mild chronic microvascular ischemic changes. Benign scleral calcifications. Paranasal sinuses and mastoids are relatively clear. Old lacunar infar cts. Impression: Chronic findings. No acute intracranial abnormality. No significant change.
[2019-08-17 14:35] LABS: #Eosinphils 0.2 thou/uL (0.0-0.7); #Lymphocytes 1.2 thou/uL (1.20-3.40); #Monocytes 0.4 thou/uL (0.11-0.59); #Neutrophils 3.1 thou/uL (1.40-6.50); %Basophils 0.2 % (0.0-1.0); %Eosinophils 4.2 % (0.0-10.0); %Monocytes 8.1 % (0.0-10.0); %Neutrophils 63.7 % (42.0-75.0); Hemoglobin 8.4 g/dL (12.0-16.0); Mean Corpuscular HGB CONC 30.3 g/dL (32.0-36.0); Mean Corpuscular Hemoglobin 24.2 pg (27.0-31.0); Mean Corpuscular Volume 79.8 fL (78.0-98.0); Mean Platelet Volume 9.7 fL (7.4-10.4); Platelet Count 187 thou/uL (130-400); RBC Distribution Width 17.3 % (11.5-14.5); Red Blood Cell (RBC) Count 3.49 mill/uL (4.20-5.40); White Blood Cell (WBC) Count 4.8 thou/uL (4.8-10.8)
--- NOTE | 2019-08-17 14:53 | RAD ---
PORTABLE CHEST 1 VIEW: Date: 08/17/19 Time: 1423 hours HISTORY: Altered mental status. FINDINGS/IMPRESSION: Comparison made with exam of 07/19/19. Left-sided AICD is again seen. The heart size is stable. The aorta is tortuous. No focal areas of con solidation, pneumothoraces, milton pulmonary edema, or large effusions are seen. POS: [facility]
[2019-08-17 15:06] LABS: ALT (SGPT) Less than 7 U/L (8-55); AST (SGOT) 8 U/L (5-34); Albumin 3.2 g/dL (3.4-4.8); Alkaline Phosphatase 72 U/L (40-110); Anion Gap 9 mmol/L (10-20); BUN (Urea Nitrogen) 43 mg/dL (9.8-20.1); Bilirubin, Total 0.2 mg/dL (0.2-1.2); CK (CPK) 28 U/L (29-168); Calc. Creatinine Clearance 0 mL/min (70-130); Carbon Dioxide 33 mmol/L (23-31); Chloride 104 mmol/L (98-107); Estimated GFR-MDRD 43; Globulin 2.6 g/dL (2.4-3.5); Glucose 128 mg/dL (83-110); Magnesium 1.7 mg/dL (1.6-2.6); Potassium 4.1 mmol/L (3.5-5.1); Protein, Total 5.8 g/dL (6.0-8.3); Sodium 142 mmol/L (136-145)
[2019-08-17 16:55] LABS: Bilirubin Negative (Negative); Blood, Urine Negative (Negative); Clarity Clear (Clear); Glucose, Urine (Dipstick) Normal (Negative); Leukocyte 25 Leu/uL (Negative); Nitrite Negative (Negative); Protein, Urine (Dipstick) Negative (Neg-Trace); Urobilinogen Normal mg/dL (Less than 2)
[2019-08-17 17:06] LABS: Bacteria/HPF 1+ HPF (None Seen); RBC/HPF None Seen HPF (0-3); Yeast-Budding 3+ HPF (None Seen)
== END 2019-08-17 18:02 | disposition home or self-care (01) ==
LOC: ERS 13:40
DX: N39.0 Urinary tract infection, site not specified (principal); M79.10 Myalgia, unspecified site; E11.9 Type 2 diabetes mellitus without complications; I11.0 Hypertensive heart disease with heart failure; I50.9 Heart failure, unspecified; I48.91 Unspecified atrial fibrillation
CPT/HCPCS: 36415; 51701; 70450; 71045; 80053; 81003; 81015; 82550; 83605; 83735; 84443; 84484; 85025; 93005; A4353